=== PATIENT | female | born 2000 | race Caucasian/White ===

== ENCOUNTER 2022-12-08 15:11 | Observation (INO) ==
--- NOTE | 2022-12-08 16:02 | XRay Report ---
SINGLE VIEW CHEST CLINICAL HISTORY: Atypical chest pain. FINDINGS: An AP upright chest radiograph is obtained. No prior studies are available for comparison a t the time of dictation. The cardiomediastinal silhouette is unremarkable. The lungs and pleural spac es are clear. No pneumothorax is seen. The bony thorax is grossly intact. IMPRESSION: No active disease in the chest. ACT 112: Negative or not required by law. Electronically signed by: Carlito Caldera M.D. 12/08/2022 4:00 PM
[2022-12-08] MEDS ORDERED: ONDANSETRON INJ 2 MG/ML 2 ML VIAL IV STA (16:16)
[2022-12-08] MEDS ORDERED: SODIUM CHLORIDE 0.9% 1,000 ML IV ONE ×2 (16:22→17:12)
[2022-12-08 16:35] LABS: Basophils # (auto) 0.01 K/uL (0.00-0.20); Basophils % (auto) 0.1 %; Hematocrit (blood only) 35.9 % (37.0-47.0); Hemoglobin 13.2 g/dl (12.0-16.0); Immature Granulocytes # (auto) 0.04 K/uL (0.01-0.20); Immature Granulocytes % (auto) 0.4 %; Lymphocytes # (auto) 0.59 K/uL (1.20-3.40); Lymphocytes % (auto) 5.2 %; Mean Corpuscular Hemoglobin 30.5 pg (25.0-34.0); Mean Corpuscular Hgb Conc 36.8 g/dL (32.0-36.0); Mean Corpuscular Volume 82.9 fL (80.0-100.0); Mean Platelet Volume 11.1 fL (9.4-12.4); Monocytes # (auto) 0.74 K/uL (0.11-0.59); Monocytes % (auto) 6.6 %; Neutrophils # (auto) 9.87 K/uL (1.40-6.50); Neutrophils % (auto) 87.7 %; Platelet Count 258 K/uL (130-400); RDW Coefficient of Variation 11.9 % (11.5-14.5); RDW Standard Deviation 36.2 fL (36.4-46.3); Red Blood Count 4.33 M/uL (4.20-5.40); White Blood Count 11.25 K/ul (4.8-10.8)
[2022-12-08 16:55] LABS: Alanine Aminotransferase 14 U/L (7-52); Albumin Globulin Ratio 1.7 (0.9-2); Alkaline Phosphatase 44 U/L (34-104); Anion Gap 18 (3-11); Aspartate Aminotransferase 16 U/L (13-39); Bilirubin,Total 0.9 mg/dl (0.2-1.0); Blood Urea Nitrogen 8 mg/dl (6-23); Calcium 9.8 mg/dl (8.6-10.3); Carbon Dioxide 15 mmol/L (21-32); Chloride 103 mmol/L (98-107); Est GFR (African American) 137.4 ml/min; Est GFR (Non-African American) 118.6 ml/min; Glucose 111 mg/dl (70-99(Fasting)); Potassium 3.6 mmol/L (3.5-5.1); Sodium 136 mmol/L (136-145)
[2022-12-08 17:00] LABS: Troponin I High Sensitivity 5.6 pg/ml (0-14)
[2022-12-08 17:04] LABS: INR 1.2 (0.9-1.1); Partial Thromboplastin Ratio 0.8; Partial Thromboplastin Time 22.9 Seconds (21.0-31.0); Prothrombin Time 12.5 Seconds (9.0-12.0)
[2022-12-08] MEDS ORDERED: DROPERIDOL 5 MG/2 ML VIAL IV STA (17:12)
--- NOTE | 2022-12-08 17:37 | Emergency Department Note ---
ED Provider Note History of Present Illness Chief Complaint: Vomiting Stated Complaint: VOMITING, CHEST PAIN Time Seen by Provider: 12/08/22 16:49 Source: patient Mode of arrival: ambulatory Limitations: no limitations This patient is a 22-year-old female who presents to the emergency department for evaluation of vomiting. Patient reports a history of similar episodes of symptoms and has been told she has cannabis hyperemesis syndrome. However, she states that she has not smoked marijuana for 2 weeks. She admits to drinking some alcohol yesterday and then developed a vomiting. She was seen here overnight and felt somewhat better at discharge but has now continued vomiting. She reports abdominal pain which is similar to prior episodes of this as well. [place] from out of the area and has been seen at hospitals at home for the same symptoms. She denies any fever/chills, chance of or urinary symptoms. Home Medications Medication Instructions Recorded Confirmed Type bupropion HCl 300 mg 24 hr tablet, 300 mg PO QAM 12/08/22 12/08/22 History extended release (Wellbutrin XL) escitalopram oxalate 20 mg tablet 30 mg PO DAILY 12/08/22 12/08/22 History (Lexapro) gabapentin 100 mg capsule 200 mg PO BID 12/08/22 12/08/22 History propranolol 20 mg tablet 20 mg PO DIRECTED PRN Anxiety 12/08/22 12/08/22 History Allergies Allergy/AdvReac Type Severity Reaction Status Date / Time doxycycline AdvReac Intermediate Vomiting Verified 12/08/22 03:01 Past Med/Surg History Medical History Anxiety and depression Cannabis hyperemesis syndrome concurrent with and due to cannabis dependence Vapes nicotine containing substance Surgical History No pertinent past surgical history Social History Smoking Status: Current every day smoker Tobacco Type: E-cigarettes / Vaping Second Hand Exposure: No; Do You Dip or Chew Tobacco: No; Tobacco Cessation Education Requested by Patient: No Hx Alcohol Use: Yes Hx Substance Use: Yes Preferred Language: Kyrgyz 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 Beliefs That Will Affect Care: None Current Living Situation: Parent Feels Safe at Home: Yes Safety Concerns: Feels Safe At This Time Assistive Devices: None Physical Exam Vital Signs Vital Signs - 24 hr 12/08/22 15:22 12/08/22 17:30 12/08/22 17:31 Temperature 36.7 C Temperature Source Temporal Artery Scan Pulse Rate 104 H Pulse Rate [Right Finger] 93 H Pulse Rhythm [Right Finger] Regular Pulse Strength [Right Finger] Normal Respiratory Rate 20 24 Respiratory Effort / Characteristics Non-Labored Spontaneous Non-Labored Spontaneous Respiratory Depth Normal Normal Respiratory Pattern Regular Blood Pressure 137/70 Blood Pressure [Right Arm] 136/83 Blood Pressure Mean 92 Blood Pressure Mean [Right Arm] 100 Blood Pressure Position [Right Arm] Lying Pulse Oximetry 100 97 100 Oxygen Delivery Method Room Air Room Air Room Air Sepsis Recent Fever Within 48 Hours No Sepsis New/Unexplained Change in Mental Status N/A Sepsis Action Taken by Nursing No Action Required 12/08/22 18:21 12/08/22 18:44 12/08/22 20:00 Temperature Temperature Source Pulse Rate 74 Pulse Rate [Right Finger] 93 H 90 Pulse Rhythm [Right Finger] Regular Regular Pulse Strength [Right Finger] Normal Normal Respiratory Rate 18 19 Respiratory Effort / Characteristics Non-Labored Spontaneous Non-Labored Spontaneous Respiratory Depth Normal Normal Respiratory Pattern Regular Regular Blood Pressure Blood Pressure [Right Arm] 134/77 117/66 Blood Pressure Mean Blood Pressure Mean [Right Arm] 96 83 Blood Pressure Position [Right Arm] Lying Lying Pulse Oximetry 99 97 Oxygen Delivery Method Room Air Room Air Sepsis Recent Fever Within 48 Hours Sepsis New/Unexplained Change in Mental Status Sepsis Action Taken by Nursing VITALS: Vitals are noted on the nurse's note and reviewed by myself. GENERAL: This is a 22-year-old female, dry heaving into an emesis bag. SKIN: The skin was without rashes. EYES: Pupils equal round and reactive to light and accommodation. MOUTH: Mucous membranes moist. HEART: Regular rate and rhythm without murmurs gallops or rubs. LUNGS: Clear to auscultation bilaterally without wheezes, rales or rhonchi. ABDOMEN: Positive bowel sounds x 4. Soft, generalized tenderness to palpation. No guarding or rebound tenderness. NEURO: Patient was alert and oriented to person place and time. Course Administered Medications Dextrose/Lactated Ringer's (D5w And Lactated Ringers) 1,000 mls @ 125 mls/hr IV .Q8H PEPE Stop: 01/07/23 20:29 Last Admin: 12/08/22 22:53 Dose: 125 mls/hr Documented By: TRIAGE TECHNICIAN Magnesium Sulfate/Dextrose (Magnesium Sulfate / D5w) 1 gm in 100 mls @ 50 mls/hr IV Q2H PEPE Stop: 12/09/22 00:59 Last Admin: 12/08/22 22:52 Dose: 50 mls/hr Documented By: TRIAGE TECHNICIAN Potassium Phosphate 21 mmol/ (Sodium Chloride) 507 mls @ 88 mls/hr IV ONE ONE Stop: 12/09/22 02:45 Last Admin: 12/08/22 22:45 Dose: 88 mls/hr Documented By: TRIAGE TECHNICIAN Discontinued Medications Droperidol (Droperidol 5 Mg/2 Ml Vial) 0.625 mg IV ONE STA Stop: 12/08/22 17:13 Last Admin: 12/08/22 17:32 Dose: 0.625 mg Documented By: TRIAGE TECHNICIAN Sodium Chloride (Nss) 1,000 mls @ 999 mls/hr IV .Q1H1M ONE Stop: 12/08/22 17:22 Last Infusion: 12/08/22 17:20 Dose: 0 mls/hr Documented By: TRIAGE TECHNICIAN Admin: 12/08/22 16:26 Dose: 999 mls/hr Documented By: ARS Sodium Chloride (Nss) 1,000 mls @ 999 mls/hr IV .Q1H1M ONE Stop: 12/08/22 18:12 Last Infusion: 12/08/22 19:22 Dose: 0 mls/hr Documented By: TRIAGE TECHNICIAN Admin: 12/08/22 17:34 Dose: 999 mls/hr Documented By: OMAR Famotidine 20 mg/ Syringe 5 mls @ 2.5 mls/min IV ONE STA Stop: 12/08/22 20:42 Last Admin: 12/08/22 21:25 Dose: 2.5 mls/min Documented By: JESÚS Pantoprazole Sodium 40 mg/ (Syringe) 10 mls @ 5 mls/min IV NOW ONE Stop: 12/08/22 20:42 Last Admin: 12/08/22 21:25 Dose: 5 mls/min Documented By: JESÚS Lorazepam (Lorazepam 2 Mg/1 Ml Vial) 0.5 mg IV NOW STA Stop: 12/08/22 20:42 Last Admin: 12/08/22 21:02 Dose: 0.5 mg Documented By: JESÚS Ondansetron HCl (Ondansetron Inj 2 Mg/Ml 2 Ml Vial) 4 mg IV NOW STA Stop: 12/08/22 16:17 Last Admin: 12/08/22 16:25 Dose: 4 mg Documented By: VIN Medical Decision Making Differential Diagnosis Gastroenteritis, food borne illness, infections, appendicitis, diverticulitis, inflammatory bowel disease, obstruction, GI bleed, biliary pathology, volvulus, as well as other pathologies. Home Medications was personally reviewed by me Laboratory Data Attestation: I reviewed the patient's lab results. 12/08/22 16:22 12/08/22 16:22 Lab Results 12/08/22 12/08/22 12/08/22 Range/Units 06:21 06:21 16:22 WBC 11.25 H (4.8-10.8) K/ul RBC 4.33 (4.20-5.40) M/uL Hgb 13.2 (12.0-16.0) g/dl Hct 35.9 L (37.0-47.0) % MCV 82.9 (80.0-100.0) fL MCH 30.5 (25.0-34.0) pg MCHC 36.8 H (32.0-36.0) g/dL RDW Std Deviation 36.2 L (36.4-46.3) fL RDW Coeff of Stephanie 11.9 (11.5-14.5) % Plt Count 258 (130-400) K/uL MPV 11.1 (9.4-12.4) fL Immature Gran % (Auto) 0.4 % Neut % (Auto) 87.7 % Lymph % (Auto) 5.2 % [place] % (Auto) 6.6 % Eos % (Auto) 0.0 % Baso % (Auto) 0.1 % Neut # (Auto) 9.87 H (1.40-6.50) K/uL Lymph # (Auto) 0.59 L (1.20-3.40) K/uL [place] # (Auto) 0.74 H (0.11-0.59) K/uL Eos # (Auto) 0.00 (0.00-0.50) K/uL Baso # (Auto) 0.01 (0.00-0.20) K/uL Immature Gran # (Auto) 0.04 (0.01-0.20) K/uL PT (9.0-12.0) Seconds INR (0.9-1.1) APTT (21.0-31.0) Seconds PTT Ratio Sodium (136-145) mmol/L Potassium (3.5-5.1) mmol/L Chloride (98-107) mmol/L Carbon Dioxide (21-32) mmol/L Anion Gap (3-11) BUN (6-23) mg/dl Creatinine (0.6-1.2) mg/dl Est Cr Clr Drug Dosing Est GFR ( Amer) ml/min Est GFR (Non-Af Amer) ml/min BUN/Creatinine Ratio (10-20) Glucose (70-99(Fasting)) mg/dl Calcium (8.6-10.3) mg/dl Phosphorus (2.5-4.9) mg/dl Magnesium (1.7-2.4) mg/dl Total Bilirubin (0.2-1.0) mg/dl AST (13-39) U/L ALT (7-52) U/L Alkaline Phosphatase (34-104) U/L Troponin I High Sens (0-14) pg/ml Total Protein (6.0-8.3) gm/dl Albumin (3.4-5.0) gm/dl Globulin (2.5-4.0) gm/dl Albumin/Globulin Ratio (0.9-2) Urine Test Negative (Negative) Urine Opiates Screen Pos H (Neg) Ur Methadone, Qual Neg (Neg) Urine Barbiturates Neg (Neg) Ur Phencyclidine (PCP) Neg (Neg) U Amphetamin/Meth Scrn Neg (Neg) MDMA (Ecstasy) Screen Pos H (Neg) U Benzodiazepines Scrn Neg (Neg) Ur Cocaine Metabolite Neg (Neg) U Marijuana (THC) Screen Pos H (Neg) 12/08/22 12/08/22 Range/Units 16:22 16:22 WBC (4.8-10.8) K/ul RBC (4.20-5.40) M/uL Hgb (12.0-16.0) g/dl Hct (37.0-47.0) % MCV (80.0-100.0) fL MCH (25.0-34.0) pg MCHC (32.0-36.0) g/dL RDW Std Deviation (36.4-46.3) fL RDW Coeff of Stephanie (11.5-14.5) % Plt Count (130-400) K/uL MPV (9.4-12.4) fL Immature Gran % (Auto) % Neut % (Auto) % Lymph % (Auto) % [place] % (Auto) % Eos % (Auto) % Baso % (Auto) % Neut # (Auto) (1.40-6.50) K/uL Lymph # (Auto) (1.20-3.40) K/uL [place] # (Auto) (0.11-0.59) K/uL Eos # (Auto) (0.00-0.50) K/uL Baso # (Auto) (0.00-0.20) K/uL Immature Gran # (Auto) (0.01-0.20) K/uL PT 12.5 H (9.0-12.0) Seconds INR 1.2 H (0.9-1.1) APTT 22.9 (21.0-31.0) Seconds PTT Ratio 0.8 Sodium 136 (136-145) mmol/L Potassium 3.6 (3.5-5.1) mmol/L Chloride 103 (98-107) mmol/L Carbon Dioxide 15 L (21-32) mmol/L Anion Gap 18 H (3-11) BUN 8 (6-23) mg/dl Creatinine 0.73 (0.6-1.2) mg/dl Est Cr Clr Drug Dosing Not Reportable Est GFR ( Amer) 137.4 ml/min Est GFR (Non-Af Amer) 118.6 ml/min BUN/Creatinine Ratio 11.0 (10-20) Glucose 111 H (70-99(Fasting)) mg/dl Calcium 9.8 (8.6-10.3) mg/dl Phosphorus 1.1 L* (2.5-4.9) mg/dl Magnesium 1.4 L (1.7-2.4) mg/dl Total Bilirubin 0.9 (0.2-1.0) mg/dl AST 16 (13-39) U/L ALT 14 (7-52) U/L Alkaline Phosphatase 44 (34-104) U/L Troponin I High Sens 5.6 (0-14) pg/ml Total Protein 8.0 (6.0-8.3) gm/dl Albumin 5.0 (3.4-5.0) gm/dl Globulin 3.0 (2.5-4.0) gm/dl Albumin/Globulin Ratio 1.7 (0.9-2) Urine Test (Negative) Urine Opiates Screen (Neg) Ur Methadone, Qual (Neg) Urine Barbiturates (Neg) Ur Phencyclidine (PCP) (Neg) U Amphetamin/Meth Scrn (Neg) MDMA (Ecstasy) Screen (Neg) U Benzodiazepines Scrn (Neg) Ur Cocaine Metabolite (Neg) U Marijuana (THC) Screen (Neg) Imaging Data Attestation: I personally reviewed and interpreted this imaging study as follows: Radiologist's Impression: Chest X-Ray 12/08/22 15:25 SINGLE VIEW CHEST CLINICAL HISTORY: Atypical chest pain. FINDINGS: An AP upright chest radiograph is obtained. No prior studies are available for comparison at the time of dictation. The cardiomediastinal silhouette is unremarkable. The lungs and pleural spaces are clear. No pneumothorax is seen. The bony thorax is grossly intact. IMPRESSION: No active disease in the chest. ACT 112: Negative or not required by law. Electronically signed by: Carlito Caldera M.D. 12/08/2022 4:00 PM ECG Data Attestation: I personally reviewed and interpreted this ECG as follows: Indication: + abdominal pain Rate (beats per minute): 91 Rhythm: + normal sinus ECG Intervals/blocks: + Short ND ECG ST segments: + Normal ST segments Comparison ECG Date: no prior available MDM Narrative Continuous quality assurance monitor: Order was placed for continuous quality assurance monitor. Patient was placed on the quality assurance monitor. Patient was noted to be in sinus tachycardia at an initial rate of 105 bpm. The patient is a 22-year-old female who presents today complaining of vomiting. Labs revealed an elevated anion gap. Patient has a leukocytosis of 11,000. She was treated with IV fluids and Zofran without improvement. She was then given droperidol which did improve her nausea and vomiting somewhat, although she did have some persistent dry heaving. For this reason patient will require admission. Case was discussed with the [facility] hospitalist who agreed to evaluate the patient for further care. Impression Intractable vomiting Discharge Plan Visit Data Chief Complaint: Vomiting Stated Complaint: VOMITING, CHEST PAIN ED Provider: Chuy Cartwright ED Midlevel Provider: Lupe Hill Discharge Problem: Intractable vomiting Patient Disposition: Admitted As Inpatient Discharge Instructions Interventions: ED Discharge Assessment Last Done: 12/08/22 23:17
[2022-12-08] MEDS ORDERED: CAPSAICIN CR 0.075% 60 GM TUBE EXT STA (20:16)
--- NOTE | 2022-12-08 20:16 | History & Physical Report ---
Date of Service December 08, 2022 Assessment & Plan (1) Cyclic vomiting syndrome: Plan: Capsaicin cream (since she has never tried this previously), if no effective will prescribe PRN lorazepam given her high anxiety/agitation and this has worked in the past Ondansetron for nausea Avoid further anti-psychotics for nausea as having dyskinesia movements, although friends report this is normal for her reportedly became worse after droperidol, can also cause esophageal dysmotility, lorazepam can help with her movement disorder in addition as above Acetaminophen for pain assuming level negative in blood Patient may take hot showers Suspect due to alcohol on this occasion. Urine drug screen pending. Add Mg and PO to previous labs No urine test performed, will add to prior urine sample in lab (2) GERD (gastroesophageal reflux disease): Plan: Pantoprazole 40mg IV and famotidine 20mg IV now Will defer additional doses to oncoming providers as suspect just related to her vomiting (3) Anxiety and depression: Plan: Continue lexopro, wellbutrin, gabapentin when able to take PO Lorazepam 0.5mg IV q4h PRN for anxiety/agitation (4) Vapes nicotine containing substance: Plan: Declines nicotine patch (5) High anion gap metabolic acidosis: Plan: Suspect due to ketoacidosis with 4+ ketones in urine, bicarb and gap progressively getting worse since earlier in the day - should improve with D5LR IV drip and eventual increase in appetite Lactate, acetaminophen, salicylate, serum osm ordered for completeness Plan VTE Prophyalxis - low risk Diet - clear liquids, advance as tolerated Disposition - observation status to med/surg Admission and Anticipated Discharge Date Admission Date: December 08, 2022 History of Present Illness Chief Complaint: Vomiting, abdominal pain Primary Care Provider: NO PCP Yolanda Monreal is a 22 year old female with history of cannabis hyperemesis syndrome who presents to the ER with her typical symptoms of abdominal pain, nausea and vomiting however she has noted had cannabis for the last 2 weeks. Symptoms started yesterday after drinking alcohol at the football game. Abdominal pain 10/10 at worse, 5/10 currently, no radiation. No diarrhea. No BM for the last 2 days, feeling constipated. Did not take her medications this morning. No urinary or respiratory complaints. History of cannabis hyperemesis for the last 1.5 years with multiple ER visits. Allergies Allergy/AdvReac Type Severity Reaction Status Date / Time doxycycline AdvReac Intermediate Vomiting Verified 12/08/22 03:01 Home Medications Medication Instructions Recorded Confirmed Type bupropion HCl 300 mg 24 hr tablet, 300 mg PO QAM 12/08/22 12/08/22 History extended release (Wellbutrin XL) escitalopram oxalate 20 mg tablet 30 mg PO DAILY 12/08/22 12/08/22 History (Lexapro) gabapentin 100 mg capsule 200 mg PO BID 12/08/22 12/08/22 History propranolol 20 mg tablet 20 mg PO DIRECTED PRN Anxiety 12/08/22 12/08/22 His tory Past Med/Surg History Medical History Anxiety and depression Cannabis hyperemesis syndrome concurrent with and due to cannabis dependence Vapes nicotine containing substance Surgical History No pertinent past surgical history Social History Smoking Status: Current every day smoker Tobacco Type: E-cigarettes / Vaping Second Hand Exposure: No; Do You Dip or Chew Tobacco: No; Tobacco Cessation Education Requested by Patient: No Hx Alcohol Use: Yes Hx Substance Use: Yes Preferred Language: Slovenian 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 Beliefs That Will Affect Care: None Current Living Situation: Parent Feels Safe at Home: Yes Safety Concerns: Feels Safe At This Time Assistive Devices: None Review of Systems Review of Systems: All systems reviewed & are unremarkable except as noted in HPI & below Physical Exam Constitutional: WD/WN, vitals as above Eyes: + anicteric sclerae; normal pupil size ENMT: external ear and nose normal, oropharynx normal Neck: trachea midline, no thyromegaly Respiratory: normal respiratory effort, lungs clear to auscultation Cardiovascular: Rate/Rhythm: regular rhythm and + tachycardic Heart Sounds: no murmur Extremities: normal capillary refill; no pedal edema Gastrointestinal (Abdomen): Inspection/Auscultation: abdomen normal to inspection; abdomen not distended Percussion/Palpation: abdomen soft; abdomen nontender, no guarding and abdomen not rigid Musculoskeletal: no cyanosis or clubbing, extremities motor strength 5/5 Skin: no rashes, warm and dry Neurologic: moves all extremities and awake; not confused Psychiatric: A+Ox3, euthymic affect Genitourinary: no CVA tenderness Results & Data Results & Data Vital Signs (Past 12 Hours) Vital Signs Temp Pulse Pulse Resp BP BP Pulse Ox 12/08/22 18:44 93 H 18 134/77 99 12/08/22 18:21 74 12/08/22 17:31 93 H 24 136/83 100 12/08/22 17:30 97 12/08/22 15:22 36.7 C 104 H 20 137/70 100 O2 Del Method 12/08/22 18:44 Room Air 12/08/22 18:21 12/08/22 17:31 Room Air 12/08/22 17:30 Room Air 12/08/22 15:22 Room Air Laboratory Results Abnormal lab results 12/08/22 12/08/22 12/08/22 Range/Units 16:22 16:22 16:22 WBC 11.25 H (4.8-10.8) K/ul Hct 35.9 L (37.0-47.0) % MCHC 36.8 H (32.0-36.0) g/dL RDW Std Deviation 36.2 L (36.4-46.3) fL Neut # (Auto) 9.87 H (1.40-6.50) K/uL Lymph # (Auto) 0.59 L (1.20-3.40) K/uL [place] # (Auto) 0.74 H (0.11-0.59) K/uL PT 12.5 H (9.0-12.0) Seconds INR 1.2 H (0.9-1.1) Carbon Dioxide 15 L (21-32) mmol/L Anion Gap 18 H (3-11) Glucose 111 H (70-99(Fasting)) mg/dl Diagnostic Findings SINGLE VIEW CHEST CLINICAL HISTORY: Atypical chest pain. FINDINGS: An AP upright chest radiograph is obtained. No prior studies are av ailable for comparison at the time of dictation. The cardiomediastinal silhouette is unremarkable. The lungs and pleural spaces are clear. No pneumothorax is seen. The bony thorax is grossly intact. IMPRESSION: No active disease in the chest. Medications Administered ER Medications Given: Ondansetron 4mg IV Normal saline 1L bolus x2 Droperidol 0.625mg IV Capsaicin 1 appln EXT ECG Rate (beats per minute): 91 Rhythm: sinus with SA Findings: no acute ischemic change Comparison ECG Date: no prior available Code Status & VTE Plan Code Status Full VTE Prophylaxis Plan VTE Prophylaxis will be ordered: No PG Care Time/CCT Total # of Minutes Spent Total Time Spent with Patient: Total time spent is greater than 50% in coordination of care (as documented) at patient's floor/unit and/or counseling patient: Coding Level of Care Code 34049 INT INP/OBS CARE 2/55MIN Diagnoses Cyclic vomiting syndrome R11.15 GERD (gastroesophageal reflux disease) K21.9 Anxiety and depression F41.9; F32.A Vapes nicotine containing substance Z72.0 High anion gap metabolic acidosis E87.29
[2022-12-08] MEDS ORDERED: FAMOTIDINE 20 MG in SYRINGE 3 ML IV STA (20:41)
[2022-12-08] MEDS ORDERED: PANTOprazole 40 MG in SYRINGE 0 ML IV ONE (20:41)
[2022-12-08] MEDS ORDERED: LORazepam 2 MG/1 ML VIAL IV STA (20:41)
[2022-12-08] MEDS ORDERED: POTASSIUM PHOS 3 MMOL/1 ML INFUSION IV STA (20:50)
[2022-12-08 20:51] LABS: Magnesium 1.4 mg/dl (1.7-2.4); Phosphorus 1.1 mg/dl (2.5-4.9)
[2022-12-08] MEDS ORDERED: POTASSIUM PHOSPHATE 21 MMOL in SODIUM CHLORIDE 0.9% 500 ML IV ONE (21:00)
[2022-12-08 21:01] LABS: Pregnancy Test, Urine Negative (Negative)
[2022-12-08 21:16] LABS: Amphetamines+Metham, Urine Neg (Neg); Barbiturates, Urine Neg (Neg); Benzodiazepine, Urine Neg (Neg); Cocaine, Urine Neg (Neg); MDMA (Ecstacy), Urine Pos (Neg); Methadone, Urine Neg (Neg); Opiate, Urine Pos (Neg); Phencyclidine, Urine Neg (Neg)
[2022-12-08 21:36] LABS: Acetaminophen < 3 ug/ml (10-30); Salicylate < 3.0 mg/dl (3.0-30)
[2022-12-08 21:57] LABS: HCO3 VBG 17 mmol/L; Oxygen Saturation VBG 96.8 %; PCO2 VBG 26 mmHg (38-50); PO2 VBG 72 mmHg; pH VBG 7.42 (7.36-7.41)
[2022-12-08] MEDS: MAGNESIUM SULFATE / D5W 1 GM/100 ML BAG IV SCH (22:52)
[2022-12-08] MEDS: D5W AND LACTATED RINGERS 1,000 ML IV SCH (22:53)
[2022-12-08] MEDS ORDERED: CAPSAICIN CR 0.075% 60 GM TUBE EXT PRN (23:51)
[2022-12-08] MEDS ORDERED: LORazepam 2 MG/1 ML VIAL IV PRN (23:51)
[2022-12-08] MEDS ORDERED: ONDANSETRON INJ 2 MG/ML 2 ML VIAL IV PRN (23:51)
[2022-12-09] MEDS: MAGNESIUM SULFATE / D5W 1 GM/100 ML BAG IV SCH (00:25)
[2022-12-09] MEDS: GABAPENTIN 100 MG CAP PO SCH ×3 (00:30→23:17)
[2022-12-09] MEDS: D5W AND LACTATED RINGERS 1,000 ML IV SCH (06:24)
--- NOTE | 2022-12-09 08:21 | Hospitalist Progress Note ---
Date of Service December 09, 2022 Assessment & Plan (1) Cyclic vomiting syndrome: Plan: Capsaicin cream (since she has never tried this previously), if no effective will prescribe PRN lorazepam given her high anxiety/agitation and this has worked in the past Ondansetron for nausea Avoid further anti-psychotics for nausea as having dyskinesia movements, although friends report this is normal for her reportedly became worse after droperidol, can also cause esophageal dysmotility, lorazepam can help with her movement disorder in addition as above Acetaminophen for pain assuming level negative in blood Patient may take hot showers Suspect due to alcohol on this occasion. Urine drug screen pending. Add Mg and PO to previous labs No urine test performed, will add to prior urine sample in lab - negative 12/09 Had been drinking on her psych meds, issues w/ droperidol in ER w/ dysmotility, hx recently diagnosed cyclic vomiting syndrome but had reported no smoking x 2 weeks. UDS w/ +opiates, marijuana, MDMA (?from her wellbutrin) --?opiate use disorder --> will need further inquiring but did not want to participate much during examination --> Emesis x 1 this morning Ativan IV provided this morning, extremely drowsy during encounter this morning, wanting to rest. SUspect component of anxiety also effecting patient. Reported severe abdominal pain Decreased to 0.5mg IV ativan as needed Reglan 10mg Q6H IV, changed to prn -- declined need for dose Psych consulted as well, appreciate assistance Clear liquid diet --> advance as tolerated Labs improved, no significant dehydration on exam, discontinued further IVF at present CTAP obtained to ensure no other issue given electrolyte derangement on admission * 1. No definite bowel wall thickening or obstruction. * 2. Normal appendix. * 3. Periportal/pericholecystic edema with mild mesenteric edema and trace pelvic fluid. This favors overhydration. Recommend correlation with LFTs. * 4. A 5.8 cm cystic lesion within the right adnexa consistent with a right ovarian dermoid as described above. Follow-up gynecologic consultation recommended. SMART GRID ENGINEER consulted, planning for pelvic/vaginal US, appreciate recs in consultation Patient reporting would like to try advancement of her diet --> full liquid for dinner, monitor/adv as able (2) GERD (gastroesophageal reflux disease): Plan: Pantoprazole 40mg IV and famotidine 20mg IV x 1 on admission Will schedule pepcid q12 for now, improvement in reflux and wanting to advance to full liquid tonight monitor advancement as tolerated can consider scheduling daily protonix if isssues w/ alcohol use/gastritis. CTAP w/o acute gastritis findings Antiemetics prn (3) Anxiety and depression: Plan: Continue lexopro, wellbutrin, gabapentin as able to take PO Lorazepam decreased from 1mg to 0.5mg anxiety/agitation/nausea Psych consulted as above, appreciate assistance (4) Vapes nicotine containing substance: Plan: Declines nicotine patch (5) High anion gap metabolic acidosis: Plan: Suspect due to ketoacidosis with 4+ ketones in urine, bicarb and gap progressively getting worse since earlier in the day - should improve with D5LR IV drip and eventual increase in appetite Lactic wnl, tylenol <3, salicylate <3 Serum osm 284 Discontinued further IVF. ?starvation ketosis vs alcoholic ketosis from drinking this past weekend? Labs improved on repeat and will monitor off further VIF (6) Hypomagnesemia: Plan: 1.4 on admission, replacement ordered Mag 2.1 on repeat labs and will monitor to ensure staying stable (7) Hypophosphatemia: Plan: 1.1 on admission, replacement ordered normalized to 3.3 on AM labs and will monitor Plan diet advanced for supper SMART GRID ENGINEER consulted, pelvic/vaginal US/recs appreciate reglan available prn, check EKG for QTC. psych consulted, appreciate assistance Admission and Anticipated Discharge Date Admission Date: December 08, 2022 Supervising Physician Co-Signing Physician Notes The patient was not seen by me. The chart was reviewed. Case discussed with VON Larose. Agree with assessment and plan. Subjective Eval around lunch, very sleepy. Wanting to rest. Reporting pain to her upper abdomen. Imaging with overhydration. Stopped. Had some emesis this morning. Discussed CTAP w/ large dermoid cyst, she reports being aware of this finding. Consultation pending for SMART GRID ENGINEER. DId not want to participating in much of an exam at present. Very sedated. Will add flumazenil prn if needed, will decrease dose of prn ativan to prevent over sedation. Later in afternoon, more alert/talkative with psych with friends in the room and did not want the reglan and reported feeling a little better. Changed to prn. To advance diet as tolerated. Review of Systems Review of Systems: All systems reviewed & are unremarkable except as noted in HPI & below Physical Exam Physical Exam: General: 22yo female sleeping upon entry, drowsy/fatigued appearing, complaints of upper abdominal discomfort HEENT: head normocephalic, atraumatic, mmm, trachea midline Resp: CTA, no w/c/r, 100% on RA CV: regular rate/rhythm, slightly tachy to 90s-low 100s, no significant m/r/g, no pitting edema GI: +BS, soft, tenderness reported upper abdomen, no rigidity/guarding/warmth : no bills MSk/Neuro: would not participate with exam, too drowsy at present. Psych: alert/oriented but drowsy Results & Data Results & Data Vital Signs (Past 12 Hours) Vital Signs Temp Pulse Pulse Resp BP BP Pulse Ox 12/09/22 07:33 36.9 C 77 14 108/75 100 12/08/22 23:17 103 H 14 114/74 99 12/08/22 22:00 79 22 115/64 98 12/08/22 22:06 94 H O2 Del Method 12/09/22 07:33 Room Air 12/08/22 23:17 Room Air 12/08/22 22:00 Room Air 12/08/22 22:06 Laboratory Results 12/09/22 12/09/22 12/08/22 Range/Units 07:35 07:35 21:40 WBC 8.80 (4.8-10.8) K/ul RBC 3.48 L (4.20-5.40) M/uL Hgb 10.3 L D (12.0-16.0) g/dl Hct 29.4 L (37.0-47.0) % MCV 84.5 (80.0-100.0) fL MCH 29.6 (25.0-34.0) pg MCHC 35.0 (32.0-36.0) g/dL RDW Std Deviation 38.7 (36.4-46.3) fL RDW Coeff of Stephanie 12.6 (11.5-14.5) % Plt Count 174 (130-400) K/uL MPV 11.3 (9.4-12.4) fL Immature Gran % (Auto) 1.4 % Neut % (Auto) 61.7 % Lymph % (Auto) 21.3 % Grainger % (Auto) 15.3 % Eos % (Auto) 0.2 % Baso % (Auto) 0.1 % Neut # (Auto) 5.43 (1.40-6.50) K/uL Lymph # (Auto) 1.87 (1.20-3.40) K/uL Grainger # (Auto) 1.35 H (0.11-0.59) K/uL Eos # (Auto) 0.02 (0.00-0.50) K/uL Baso # (Auto) 0.01 (0.00-0.20) K/uL Immature Gran # (Auto) 0.12 (0.01-0.20) K/uL PT (9.0-12.0) Seconds INR (0.9-1.1) APTT (21.0-31.0) Seconds PTT Ratio VBG pH 7.42 H (7.36-7.41) VBG pCO2 26 L (38-50) mmHg VBG pO2 72 mmHg VBG HCO3 17 mmol/L VBG O2 Saturation 96.8 % VBG Base Excess -6.0 mEq/L Sodium 139 (136-145) mmol/L Potassium 3.4 L (3.5-5.1) mmol/L Chloride 112 H (98-107) mmol/L Carbon Dioxide 23 (21-32) mmol/L Anion Gap 4 (3-11) BUN 3 L (6-23) mg/dl Creatinine 0.54 L (0.6-1.2) mg/dl Est Cr Clr Drug Dosing 131.4 Est GFR ( Amer) > 150.0 ml/min Est GFR (Non-Af Amer) 135.8 ml/min BUN/Creatinine Ratio 5.6 L (10-20) Glucose 111 H (70-99(Fasting)) mg/dl Osmolality (280-300) mOsm/kg Lactate (0.4-2.0) mmol/L Calcium 8.0 L (8.6-10.3) mg/dl Phosphorus 3.3 D (2.5-4.9) mg/dl Magnesium 2.1 (1.7-2.4) mg/dl Total Bilirubin 0.5 (0.2-1.0) mg/dl AST 11 L (13-39) U/L ALT 9 (7-52) U/L Alkaline Phosphatase 30 L (34-104) U/L Troponin I High Sens (0-14) pg/ml Total Protein 5.6 L D (6.0-8.3) gm/dl Albumin 3.6 (3.4-5.0) gm/dl Globulin 2.0 L (2.5-4.0) gm/dl Albumin/Globulin Ratio 1.8 (0.9-2) Urine Test (Negative) Salicylates (3.0-30) mg/dl Urine Opiates Screen (Neg) U Codeine Confrm GC/MS Ur Morphine (GC/MS) Ur Hydrocodone (GC/MS) Ur Norhydrocodone Ur Noroxycodone Urine Oxycodone (GC/MS) U Oxymorphone GC/MS Ur Methadone, Qual (Neg) Ur Hydromorphone (GC/MS) Acetaminophen (10-30) ug/ml Urine Barbiturates (Neg) Ur Phencyclidine (PCP) (Neg) U Amphetamin/Meth Scrn (Neg) Urine MDEA MDMA (Ecstasy) Screen (Neg) MDMA Urine MDMA U Benzodiazepines Scrn (Neg) Ur Cocaine Metabolite (Neg) U Marijuana (THC) Screen (Neg) U Marijuana THC Carboxy Drug Screen Comment Ethyl Alcohol mg/dL (<10.0) mg/dl 12/08/22 12/08/22 12/08/22 Range/Units 21:06 21:06 21:06 WBC (4.8-10.8) K/ul RBC (4.20-5.40) M/uL Hgb (12.0-16.0) g/dl Hct (37.0-47.0) % MCV (80.0-100.0) fL MCH (25.0-34.0) pg MCHC (32.0-36.0) g/dL RDW Std Deviation (36.4-46.3) fL RDW Coeff of Stephanie (11.5-14.5) % Plt Count (130-400) K/uL MPV (9.4-12.4) fL Immature Gran % (Auto) % Neut % (Auto) % Lymph % (Auto) % Grainger % (Auto) % Eos % (Auto) % Baso % (Auto) % Neut # (Auto) (1.40-6.50) K/uL Lymph # (Auto) (1.20-3.40) K/uL Grainger # (Auto) (0.11-0.59) K/uL Eos # (Auto) (0.00-0.50) K/uL Baso # (Auto) (0.00-0.20) K/uL Immature Gran # (Auto) (0.01-0.20) K/uL PT (9.0-12.0) Seconds INR (0.9-1.1) APTT (21.0-31.0) Seconds PTT Ratio VBG pH (7.36-7.41) VBG pCO2 (38-50) mmHg VBG pO2 mmHg VBG HCO3 mmol/L VBG O2 Saturation % VBG Base Excess mEq/L Sodium (136-145) mmol/L Potassium (3.5-5.1) mmol/L Chloride (98-107) mmol/L Carbon Dioxide (21-32) mmol/L Anion Gap (3-11) BUN (6-23) mg/dl Creatinine (0.6-1.2) mg/dl Est Cr Clr Drug Dosing Est GFR ( Amer) ml/min Est GFR (Non-Af Amer) ml/min BUN/Creatinine Ratio (10-20) Glucose (70-99(Fasting)) mg/dl Osmolality 284 (280-300) mOsm/kg Lactate (0.4-2.0) mmol/L Calcium (8.6-10.3) mg/dl Phosphorus (2.5-4.9) mg/dl Magnesium (1.7-2.4) mg/dl Total Bilirubin (0.2-1.0) mg/dl AST (13-39) U/L ALT (7-52) U/L Alkaline Phosphatase (34-104) U/L Troponin I High Sens (0-14) pg/ml Total Protein (6.0-8.3) gm/dl Albumin (3.4-5.0) gm/dl Globulin (2.5-4.0) gm/dl Albumin/Globulin Ratio (0.9-2) Urine Test (Negative) Salicylates < 3.0 L (3.0-30) mg/dl Urine Opiates Screen (Neg) U Codeine Confrm GC/MS Ur Morphine (GC/MS) Ur Hydrocodone (GC/MS) Ur Norhydrocodone Ur Noroxycodone Urine Oxycodone (GC/MS) U Oxymorphone GC/MS Ur Methadone, Qual (Neg) Ur Hydromorphone (GC/MS) Acetaminophen < 3 L (10-30) ug/ml Urine Barbiturates (Neg) Ur Phencyclidine (PCP) (Neg) U Amphetamin/Meth Scrn (Neg) Urine MDEA MDMA (Ecstasy) Screen (Neg) MDMA Urine MDMA U Benzodiazepines Scrn (Neg) Ur Cocaine Metabolite (Neg) U Marijuana (THC) Screen (Neg) U Marijuana THC Carboxy Drug Screen Comment Ethyl Alcohol mg/dL < 10.0 (<10.0) mg/dl 12/08/22 12/08/22 12/08/22 Range/Units 21:06 16:22 16:22 WBC (4.8-10.8) K/ul RBC (4.20-5.40) M/uL Hgb (12.0-16.0) g/dl Hct (37.0-47.0) % MCV (80.0-100.0) fL MCH (25.0-34.0) pg MCHC (32.0-36.0) g/dL RDW Std Deviation (36.4-46.3) fL RDW Coeff of Stephanie (11.5-14.5) % Plt Count (130-400) K/uL MPV (9.4-12.4) fL Immature Gran % (Auto) % Neut % (Auto) % Lymph % (Auto) % Grainger % (Auto) % Eos % (Auto) % Baso % (Auto) % Neut # (Auto) (1.40-6.50) K/uL Lymph # (Auto) (1.20-3.40) K/uL Grainger # (Auto) (0.11-0.59) K/uL Eos # (Auto) (0.00-0.50) K/uL Baso # (Auto) (0.00-0.20) K/uL Immature Gran # (Auto) (0.01-0.20) K/uL PT 12.5 H (9.0-12.0) Seconds INR 1.2 H (0.9-1.1) APTT 22.9 (21.0-31.0) Seconds PTT Ratio 0.8 VBG pH (7.36-7.41) VBG pCO2 (38-50) mmHg VBG pO2 mmHg VBG HCO3 mmol/L VBG O2 Saturation % VBG Base Excess mEq/L Sodium 136 (136-145) mmol/L Potassium 3.6 (3.5-5.1) mmol/L Chloride 103 (98-107) mmol/L Carbon Dioxide 15 L (21-32) mmol/L Anion Gap 18 H (3-11) BUN 8 (6-23) mg/dl Creatinine 0.73 (0.6-1.2) mg/dl Est Cr Clr Drug Dosing Not Reportable Est GFR ( Amer) 137.4 ml/min Est GFR (Non-Af Amer) 118.6 ml/min BUN/Creatinine Ratio 11.0 (10-20) Glucose 111 H (70-99(Fasting)) mg/dl Osmolality (280-300) mOsm/kg Lactate 1.4 (0.4-2.0) mmol/L Calcium 9.8 (8.6-10.3) mg/dl Phosphorus 1.1 L* (2.5-4.9) mg/dl Magnesium 1.4 L (1.7-2.4) mg/dl Total Bilirubin 0.9 (0.2-1.0) mg/dl AST 16 (13-39) U/L ALT 14 (7-52) U/L Alkaline Phosphatase 44 (34-104) U/L Troponin I High Sens 5.6 (0-14) pg/ml Total Protein 8.0 (6.0-8.3) gm/dl Albumin 5.0 (3.4-5.0) gm/dl Globulin 3.0 (2.5-4.0) gm/dl Albumin/Globulin Ratio 1.7 (0.9-2) Urine Test (Negative) Salicylates (3.0-30) mg/dl Urine Opiates Screen (Neg) U Codeine Confrm GC/MS Ur Morphine (GC/MS) Ur Hydrocodone (GC/MS) Ur Norhydrocodone Ur Noroxycodone Urine Oxycodone (GC/MS) U Oxymorphone GC/MS Ur Methadone, Qual (Neg) Ur Hydromorphone (GC/MS) Acetaminophen (10-30) ug/ml Urine Barbiturates (Neg) Ur Phencyclidine (PCP) (Neg) U Amphetamin/Meth Scrn (Neg) Urine MDEA MDMA (Ecstasy) Screen (Neg) MDMA Urine MDMA U Benzodiazepines Scrn (Neg) Ur Cocaine Metabolite (Neg) U Marijuana (THC) Screen (Neg) U Marijuana THC Carboxy Drug Screen Comment Ethyl Alcohol mg/dL (<10.0) mg/dl 12/08/22 12/08/22 12/08/22 Range/Units 16:22 06:21 06:21 WBC 11.25 H (4.8-10.8) K/ul RBC 4.33 (4.20-5.40) M/uL Hgb 13.2 (12.0-16.0) g/dl Hct 35.9 L (37.0-47.0) % MCV 82.9 (80.0-100.0) fL MCH 30.5 (25.0-34.0) pg MCHC 36.8 H (32.0-36.0) g/dL RDW Std Deviation 36.2 L (36.4-46.3) fL RDW Coeff of Stephaine 11.9 (11.5-14.5) % Plt Count 258 (130-400) K/uL MPV 11.1 (9.4-12.4) fL Immature Gran % (Auto) 0.4 % Neut % (Auto) 87.7 % Lymph % (Auto) 5.2 % Grainger % (Auto) 6.6 % Eos % (Auto) 0.0 % Baso % (Auto) 0.1 % Neut # (Auto) 9.87 H (1.40-6.50) K/uL Lymph # (Auto) 0.59 L (1.20-3.40) K/uL Grainger # (Auto) 0.74 H (0.11-0.59) K/uL Eos # (Auto) 0.00 (0.00-0.50) K/uL Baso # (Auto) 0.01 (0.00-0.20) K/uL Immature Gran # (Auto) 0.04 (0.01-0.20) K/uL PT (9.0-12.0) Seconds INR (0.9-1.1) APTT (21.0-31.0) Seconds PTT Ratio VBG pH (7.36-7.41) VBG pCO2 (38-50) mmHg VBG pO2 mmHg VBG HCO3 mmol/L VBG O2 Saturation % VBG Base Excess mEq/L Sodium (136-145) mmol/L Potassium (3.5-5.1) mmol/L Chloride (98-107) mmol/L Carbon Dioxide (21-32) mmol/L Anion Gap (3-11) BUN (6-23) mg/dl Creatinine (0.6-1.2) mg/dl Est Cr Clr Drug Dosing Est GFR ( Amer) ml/min Est GFR (Non-Af Amer) ml/min BUN/Creatinine Ratio (10-20) Glucose (70-99(Fasting)) mg/dl Osmolality (280-300) mOsm/kg Lactate (0.4-2.0) mmol/L Calcium (8.6-10.3) mg/dl Phosphorus (2.5-4.9) mg/dl Magnesium (1.7-2.4) mg/dl Total Bilirubin (0.2-1.0) mg/dl AST (13-39) U/L ALT (7-52) U/L Alkaline Phosphatase (34-104) U/L Troponin I High Sens (0-14) pg/ml Total Protein (6.0-8.3) gm/dl Albumin (3.4-5.0) gm/dl Globulin (2.5-4.0) gm/dl Albumin/Globulin Ratio (0.9-2) Urine Test Negative (Negative) Salicylates (3.0-30) mg/dl Urine Opiates Screen (Neg) U Codeine Confrm GC/MS Pending Ur Morphine (GC/MS) Pending Ur Hydrocodone (GC/MS) Pending Ur Norhydrocodone Pending Ur Noroxycodone Pending Urine Oxycodone (GC/MS) Pending U Oxymorphone GC/MS Pending Ur Methadone, Qual (Neg) Ur Hydromorphone (GC/MS) Pending Acetaminophen (10-30) ug/ml Urine Barbiturates (Neg) Ur Phencyclidine (PCP) (Neg) U Amphetamin/Meth Scrn (Neg) Urine MDEA Pending MDMA (Ecstasy) Screen (Neg) MDMA Pending Urine MDMA Pending U Benzodiazepines Scrn (Neg) Ur Cocaine Metabolite (Neg) U Marijuana (THC) Screen (Neg) U Marijuana THC Carboxy Pending Drug Screen Comment Pending Ethyl Alcohol mg/dL (<10.0) mg/dl 12/08/22 Range/Units 06:21 WBC (4.8-10.8) K/ul RBC (4.20-5.40) M/uL Hgb (12.0-16.0) g/dl Hct (37.0-47.0) % MCV (80.0-100.0) fL MCH (25.0-34.0) pg MCHC (32.0-36.0) g/dL RDW Std Deviation (36.4-46.3) fL RDW Coeff of Stephanie (11.5-14.5) % Plt Count (130-400) K/uL MPV (9.4-12.4) fL Immature Gran % (Auto) % Neut % (Auto) % Lymph % (Auto) % Grainger % (Auto) % Eos % (Auto) % Baso % (Auto) % Neut # (Auto) (1.40-6.50) K/uL Lymph # (Auto) (1.20-3.40) K/uL Grainger # (Auto) (0.11-0.59) K/uL Eos # (Auto) (0.00-0.50) K/uL Baso # (Auto) (0.00-0.20) K/uL Immature Gran # (Auto) (0.01-0.20) K/uL PT (9.0-12.0) Seconds INR (0.9-1.1) APTT (21.0-31.0) Seconds PTT Ratio VBG pH (7.36-7.41) VBG pCO2 (38-50) mmHg VBG pO2 mmHg VBG HCO3 mmol/L VBG O2 Saturation % VBG Base Excess mEq/L Sodium (136-145) mmol/L Potassium (3.5-5.1) mmol/L Chloride (98-107) mmol/L Carbon Dioxide (21-32) mmol/L Anion Gap (3-11) BUN (6-23) mg/dl Creatinine (0.6-1.2) mg/dl Est Cr Clr Drug Dosing Est GFR ( Amer) ml/min Est GFR (Non-Af Amer) ml/min BUN/Creatinine Ratio (10-20) Glucose (70-99(Fasting)) mg/dl Osmolality (280-300) mOsm/kg Lactate (0.4-2.0) mmol/L Calcium (8.6-10.3) mg/dl Phosphorus (2.5-4.9) mg/dl Magnesium (1.7-2.4) mg/dl Total Bilirubin (0.2-1.0) mg/dl AST (13-39) U/L ALT (7-52) U/L Alkaline Phosphatase (34-104) U/L Troponin I High Sens (0-14) pg/ml Total Protein (6.0-8.3) gm/dl Albumin (3.4-5.0) gm/dl Globulin (2.5-4.0) gm/dl Albumin/Globulin Ratio (0.9-2) Urine Test (Negative) Salicylates (3.0-30) mg/dl Urine Opiates Screen Pos H (Neg) U Codeine Confrm GC/MS Ur Morphine (GC/MS) Ur Hydrocodone (GC/MS) Ur Norhydrocodone Ur Noroxycodone Urine Oxycodone (GC/MS) U Oxymorphone GC/MS Ur Methadone, Qual Neg (Neg) Ur Hydromorphone (GC/MS) Acetaminophen (10-30) ug/ml Urine Barbiturates Neg (Neg) Ur Phencyclidine (PCP) Neg (Neg) U Amphetamin/Meth Scrn Neg (Neg) Urine MDEA MDMA (Ecstasy) Screen Pos H (Neg) MDMA Urine MDMA U Benzodiazepines Scrn Neg (Neg) Ur Cocaine Metabolite Neg (Neg) U Marijuana (THC) Screen Pos H (Neg) U Marijuana THC Carboxy Drug Screen Comment Ethyl Alcohol mg/dL (<10.0) mg/dl Diagnostic Findings Abdomen/Pelvis CT 12/09/22 09:[address] WITH IV CONTRAST CT DOSE: 456.44 mGy.cm HISTORY: Generalized abdominal pain, nausea, vomiting TECHNIQUE: Multiaxial CT images of the abdomen and pelvis were performed following the use of intravenous contrast. A dose lowering technique was utilized adhering to the principles of ALARA. COMPARISON STUDY: None. FINDINGS: The lung bases are clear. No pneumoperitoneum. No pneumatosis. No acute fractures identified. There is periportal/pericholecystic edema noted. This could be due to overhydration. Hepatic and portal veins appear patent. No hepatic or splenic masses. The adrenal glands, pancreas, and kidneys are unremarkable. No hydronephrosis. Normal caliber abdominal aorta. No retroperitoneal or pelvic lymphadenopathy. Trace pelvic free fluid is noted. The bladder is unremarkable. Suggestion of an arcuate uterus. Normal left ovary. There is a 5.8 cm cystic lesion within the right ovary/adnexa which contains a small calcification within adjacent punctate focus of fat best seen on image 270. Therefore, this is consistent with a right ovarian dermoid. Majority colon is decompressed resulting in suboptimal evaluation. However, there is no defin ite bowel wall thickening or obstruction. Normal appendix. Mild mesenteric edema. This could also be due to overhydration. The major mesenteric vessels appear patent. IMPRESSION: 1. No definite bowel wall thickening or obstruction. 2. Normal appendix. 3. Periportal/pericholecystic edema with mild mesenteric edema and trace pelvic fluid. This favors overhydration. Recommend correlation with LFTs. 4. A 5.8 cm cystic lesion within the right adnexa consistent with a right ovarian dermoid as described above. Follow-up gynecologic consultation recommended. ACT 112: Positive. There are findings on this exam that require communication between the performing entity and the patient following Patient Test Result Information Act ([place] Act 112) guidelines. Electronically signed by: José Miguel Shirley M.D. 12/09/2022 12:07 PM PG Care Time/CCT Total # of Minutes Spent Total Time Spent with Patient: Total time spent is greater than 50% in coordination of care (as documented) at patient's floor/unit and/or counseling patient: Coding Level of Care Code 27278 SUB INP/OBS CARE 3/50MIN Diagnoses Cyclic vomiting syndrome R11.15 GERD (gastroesophageal reflux disease) K21.9 Anxiety and depression F41.9; F32.A Vapes nicotine containing substance Z72.0 High anion gap metabolic acidosis E87.29 Hypomagnesemia E83.42 Hypophosphatemia E83.39
[2022-12-09 08:50] LABS: Basophils # (auto) 0.01 K/uL (0.00-0.20); Basophils % (auto) 0.1 %; Eosinophils # (auto) 0.02 K/uL (0.00-0.50); Eosinophils % (auto) 0.2 %; Hematocrit (blood only) 29.4 % (37.0-47.0); Hemoglobin 10.3 g/dl (12.0-16.0); Immature Granulocytes # (auto) 0.12 K/uL (0.01-0.20); Immature Granulocytes % (auto) 1.4 %; Lymphocytes # (auto) 1.87 K/uL (1.20-3.40); Lymphocytes % (auto) 21.3 %; Mean Corpuscular Hemoglobin 29.6 pg (25.0-34.0); Mean Corpuscular Volume 84.5 fL (80.0-100.0); Mean Platelet Volume 11.3 fL (9.4-12.4); Monocytes # (auto) 1.35 K/uL (0.11-0.59); Monocytes % (auto) 15.3 %; Neutrophils # (auto) 5.43 K/uL (1.40-6.50); Neutrophils % (auto) 61.7 %; Platelet Count 174 K/uL (130-400); RDW Coefficient of Variation 12.6 % (11.5-14.5); RDW Standard Deviation 38.7 fL (36.4-46.3); Red Blood Count 3.48 M/uL (4.20-5.40)
[2022-12-09] MEDS ORDERED: buPROPion XL 300 MG TABCR PO SCH (09:00)
[2022-12-09] MEDS ORDERED: ESCITALOPRAM OXALATE 10 MG TAB PO SCH (09:00)
[2022-12-09] MEDS ORDERED: ACETAMINOPHEN 1,000 MG/100 ML VIAL IV STA (09:17)
[2022-12-09 09:46] LABS: Alanine Aminotransferase 9 U/L (7-52); Albumin Globulin Ratio 1.8 (0.9-2); Albumin Level 3.6 gm/dl (3.4-5.0); Alkaline Phosphatase 30 U/L (34-104); Anion Gap 4 (3-11); Aspartate Aminotransferase 11 U/L (13-39); BUN Creatinine Ratio 5.6 (10-20); Bilirubin,Total 0.5 mg/dl (0.2-1.0); Blood Urea Nitrogen 3 mg/dl (6-23); Carbon Dioxide 23 mmol/L (21-32); Chloride 112 mmol/L (98-107); Creatinine Clr Calc Pharmacy 131.4 ml/min; Est GFR (African American) > 150.0 ml/min; Est GFR (Non-African American) 135.8 ml/min; Glucose 111 mg/dl (70-99(Fasting)); Magnesium 2.1 mg/dl (1.7-2.4); Phosphorus 3.3 mg/dl (2.5-4.9); Potassium 3.4 mmol/L (3.5-5.1); Sodium 139 mmol/L (136-145); Total Protein 5.6 gm/dl (6.0-8.3)
[2022-12-09] MEDS ORDERED: OPTIRAY 320 100ml IV ONE (11:25)
[2022-12-09] MEDS ORDERED: POTASSIUM CHLORIDE 20 MEQ/15 ML UDC PO STA (11:25)
--- NOTE | 2022-12-09 11:54 | Electrocardiogram Report ---
Test Reason : Blood Pressure : / mmHG Vent. Rate : 091 BPM Atrial Rate : 091 BPM P-R Int : 084 ms QRS Dur : 074 ms QT Int : 392 ms P-R-T Axes : 093 084 020 degrees QTc Int : 482 ms Poor data quality, interpretation may be adversely affected Sinus rhythm with sinus arrhythmia with short SC Otherwise normal ECG No previous ECGs available Confirmed by Kevin Arias ([id number]) on 12/09/2022 11:53:50 AM Referred By: REFERRED SELF Confirmed By:Kevin Arias
--- NOTE | 2022-12-09 12:09 | CT Scan Report ---
ABDOMEN AND PELVIS CT WITH IV CONTRAST CT DOSE: 456.44 mGy.cm HISTORY: Generalized abdominal pain, nausea, vomiting TECHNIQUE: Multiaxial CT images of the abdomen and pelvis were performed following the use of intrave nous contrast. A dose lowering technique was utilized adhering to the principles of ALARA. COMPARISON STUDY: None. FINDINGS: The lung bases are clear. No pneumoperitoneum. No pneumatosis. No acute fractures identifie d. There is periportal/pericholecystic edema noted. This could be due to overhydration. Hepatic and p ortal veins appear patent. No hepatic or splenic masses. The adrenal glands, pancreas, and kidneys ar e unremarkable. No hydronephrosis. Normal caliber abdominal aorta. No retroperitoneal or pelvic lymph adenopathy. Trace pelvic free fluid is noted. The bladder is unremarkable. Suggestion of an arcuate u terus. Normal left ovary. There is a 5.8 cm cystic lesion within the right ovary/adnexa which contain s a small calcification within adjacent punctate focus of fat best seen on image 270. Therefore, this is consistent with a right ovarian dermoid. Majority colon is decompressed resulting in suboptimal e valuation. However, there is no definite bowel wall thickening or obstruction. Normal appendix. Mild mesenteric edema. This could also be due to overhydration. The major mesenteric vessels appear patent . IMPRESSION: 1. No definite bowel wall thickening or obstruction. 2. Normal appendix. 3. Periportal/pericholecystic edema with mild mesenteric edema and trace pelvic fluid. This favors ov erhydration. Recommend correlation with LFTs. 4. A 5.8 cm cystic lesion within the right adnexa consistent with a right ovarian dermoid as describe d above. Follow-up gynecologic consultation recommended. ACT 112: Positive. There are findings on this exam that require communication between the performing entity and the patient following Patient Test Result Information Act ([place] Act 112) guidelines. Electronically signed by: José Miguel Shirley M.D. 12/09/2022 12:07 PM
[2022-12-09] MEDS ORDERED: MoRPHine SULFATE 2 MG/ML CARP IV PRN (12:23)
[2022-12-09] MEDS ORDERED: LORazepam 2 MG/1 ML VIAL IV PRN (12:27)
[2022-12-09] MEDS ORDERED: FLUMAZENIL 0.1 MG/1 ML 10 ML VIAL IV PRN (12:28)
[2022-12-09] MEDS ORDERED: METOCLOPRAMIDE HCL INJ 5 MG/ML 2 ML VIAL IV SCH (13:15)
--- NOTE | 2022-12-09 15:10 | Psychiatric Consultation ---
Date of Consultation December 09, 2022 Impression / Recommendations Impression 22 yo female with recent d/c of cannabis due to hyperemesis syndrome having similar reaction following ingestion of alcohol in combination with her psychiatric medications. She denies tics at baseline and I agree she is likely having some transient dyskinesias following droperidol. Certainly Wellbutrin can contribute to tics, mild serotonin syndromes can contribute, and I've seen EPS with phernergan, reglan etc. Discussed with patient that she is on high dose of Lexapro, she denies feeling sx of serotonin syndrome at baseline. Reviewed risks of QTc prolongation with medications, EKG QTc >480. (1) Anxiety and depression: (2) Cyclic vomiting syndrome: Plan patient has not yet tried capsaicin for abdominal pain, currently feeling better monitor dyskinesias, she does not want to decrease any of her psychiatric medications but willing to sign MARY KATE for psychiatrist and mother so that liaison can confirm aftercare/rec for therapist, etc. patient states she doesn't like Zofran and would avoid this and other agents that can prolong the QTc. reviewed that neurontin may be adjusted as outpatient (more desirable than rx of Ativan which is controlled) but only if not combining with ETOH, will be at discretion of outpatient psychiatrist as she is currently out of state and returning home momentarily as not a student here. Overall, I spent a total of 36 minutes with this case, including review of chart records, direct evaluation of the patient bedside, counseling the patient, and documentation in the electronic health record. Psych History Identifying Data 22 yo female from [facility] here visiting friends for football week, presented to ED twice with hyperemesis. consult is by hospitalist service for medication assessment. Chief Complaint hx of cannabis hyperemesis syndrome History of Present Illness Patient reports at least 4 year hx of psychiatric care in [place] for anxiety and some depression. Had been using MJ heavily until 2 weeks ago when stopped due to cyclic vomiting. presented to ED because began to feel sick after a "sip of white claw" then developed some panic like symptoms with likely hyperventilation and carpopedal spasm. On initial presentation to the ED was given droperidol and apparently experienced some dyskinesia of left shoulder/upper extremity, began vomiting again after left ED and returned/was admitted. Patient was tired this am following dose of Ativan but is now alert and interactive with friends at bedside who confirm her accounts of sympmtoms/past psych hx. Although she struggles with feeling anxious, she denies recent medication changes and is adamant no SIB/SI. She lives with her parents who are supportive. Allergies Allergy/AdvReac Type Severity Reaction Status Date / Time doxycycline AdvReac Intermediate Vomiting Verified 12/08/22 03:01 Home Medications Medication Instructions Recorded Confirmed Type bupropion HCl 300 mg 24 hr tablet, 300 mg PO QAM 12/08/22 12/08/22 History extended release (Wellbutrin XL) escitalopram oxalate 20 mg tablet 30 mg PO DAILY 12/08/22 12/08/22 History (Lexapro) gabapentin 100 mg capsule 200 mg PO BID 12/08/22 12/08/22 History propranolol 20 mg tablet 20 mg PO DIRECTED PRN Anxiety 12/08/22 12/08/22 History Patient History Medical History Anxiety and depression Cannabis hyperemesis syndrome concurrent with and due to cannabis dependence Vapes nicotine containing substance Surgical History No pertinent past surgical history Social History Smoking Status: Current every day smoker Tobacco Type: E-cigarettes / Vaping Second Hand Exposure: No; Do You Dip or Chew Tobacco: No; Tobacco Cessation Education Requested by Patient: No Hx Alcohol Use: Yes Hx Substance Use: Yes Preferred Language: Maltese Agronomy Advisor Required: No Beliefs That Will Affect Care: None Current Living Situation: Parent Feels Safe at Home: Yes Safety Concerns: Feels Safe At This Time Assistive Devices: None Physical Exam Psychiatric: Orientation: alert and cooperative Apperance: appropriately groomed Eye Contact: good eye contact Motor Behavior: + abnormal motor movements (tic like movement of left shoulder with rock forward) Speech: normal rate/rhythm/volume of speech Affect: euthymic affect Mood: no depressed mood Thought Process: goal directed thought process Thought Content: reality based without delusions Suicidal Thoughts: denies suicidal thoughts Homicidal Thoughts: denies homicidal thoughts Hallucinations: no auditory hallucinations and no visual hallucinations Cognition: attention grossly intact and language grossly intact Estimated Intelligence: consistent with education level Vital Signs (Past 24 Hours): Last Vital Signs Temp 37.3 C 12/09/22 14:40 Pulse 96 H 12/09/22 14:40 Resp 16 12/09/22 14:40 BP 106/69 12/09/22 14:40 Pulse Ox 100 12/09/22 14:40 O2 Del Method Room Air 12/09/22 14:40 Review of Systems All systems reviewed & are unremarkable except as noted in HPI & below Results & Data (PSY) Laboratory Results 12/09/22 12/09/22 12/08/22 Range/Units 07:35 07:35 21:40 WBC 8.80 (4.8-10.8) K/ul RBC 3.48 L (4.20-5.40) M/uL Hgb 10.3 L D (12.0-16.0) g/dl Hct 29.4 L (37.0-47.0) % MCV 84.5 (80.0-100.0) fL MCH 29.6 (25.0-34.0) pg MCHC 35.0 (32.0-36.0) g/dL RDW Std Deviation 38.7 (36.4-46.3) fL RDW Coeff of Stephanie 12.6 (11.5-14.5) % Plt Count 174 (130-400) K/uL MPV 11.3 (9.4-12.4) fL Immature Gran % (Auto) 1.4 % Neut % (Auto) 61.7 % Lymph % (Auto) 21.3 % Oxford % (Auto) 15.3 % Eos % (Auto) 0.2 % Baso % (Auto) 0.1 % Neut # (Auto) 5.43 (1.40-6.50) K/uL Lymph # (Auto) 1.87 (1.20-3.40) K/uL Oxford # (Auto) 1.35 H (0.11-0.59) K/uL Eos # (Auto) 0.02 (0.00-0.50) K/uL Baso # (Auto) 0.01 (0.00-0.20) K/uL Immature Gran # (Auto) 0.12 (0.01-0.20) K/uL PT (9.0-12.0) Seconds INR (0.9-1.1) APTT (21.0-31.0) Seconds PTT Ratio VBG pH 7.42 H (7.36-7.41) VBG pCO2 26 L (38-50) mmHg VBG pO2 72 mmHg VBG HCO3 17 mmol/L VBG O2 Saturation 96.8 % VBG Base Excess -6.0 mEq/L Sodium 139 (136-145) mmol/L Potassium 3.4 L (3.5-5.1) mmol/L Chloride 112 H (98-107) mmol/L Carbon Dioxide 23 (21-32) mmol/L Anion Gap 4 (3-11) BUN 3 L (6-23) mg/dl Creatinine 0.54 L (0.6-1.2) mg/dl Est Cr Clr Drug Dosing 131.4 Est GFR ( Amer) > 150.0 ml/min Est GFR (Non-Af Amer) 135.8 ml/min BUN/Creatinine Ratio 5.6 L (10-20) Glucose 111 H (70-99(Fasting)) mg/dl Osmolality (280-300) mOsm/kg Lactate (0.4-2.0) mmol/L Calcium 8.0 L (8.6-10.3) mg/dl Phosphorus 3.3 D (2.5-4.9) mg/dl Magnesium 2.1 (1.7-2.4) mg/dl Total Bilirubin 0.5 (0.2-1.0) mg/dl AST 11 L (13-39) U/L ALT 9 (7-52) U/L Alkaline Phosphatase 30 L (34-104) U/L Troponin I High Sens (0-14) pg/ml Total Protein 5.6 L D (6.0-8.3) gm/dl Albumin 3.6 (3.4-5.0) gm/dl Globulin 2.0 L (2.5-4.0) gm/dl Albumin/Globulin Ratio 1.8 (0.9-2) Urine Test (Negative) Salicylates (3.0-30) mg/dl Urine Opiates Screen (Neg) U Codeine Confrm GC/MS Ur Morphine (GC/MS) Ur Hydrocodone (GC/MS) Ur Norhydrocodone Ur Noroxycodone Urine Oxycodone (GC/MS) U Oxymorphone GC/MS Ur Methadone, Qual (Neg) Ur Hydromorphone (GC/MS) Acetaminophen (10-30) ug/ml Urine Barbiturates (Neg) Ur Phencyclidine (PCP) (Neg) U Amphetamin/Meth Scrn (Neg) Urine MDEA MDMA (Ecstasy) Screen (Neg) MDMA Urine MDMA U Benzodiazepines Scrn (Neg) Ur Cocaine Metabolite (Neg) U Marijuana (THC) Screen (Neg) U Marijuana THC Carboxy Drug Screen Comment Ethyl Alcohol mg/dL (<10.0) mg/dl 12/08/22 12/08/22 12/08/22 Range/Units 21:06 21:06 21:06 WBC (4.8-10.8) K/ul RBC (4.20-5.40) M/uL Hgb (12.0-16.0) g/dl Hct (37.0-47.0) % MCV (80.0-100.0) fL MCH (25.0-34.0) pg MCHC (32.0-36.0) g/dL RDW Std Deviation (36.4-46.3) fL RDW Coeff of Stephanie (11.5-14.5) % Plt Count (130-400) K/uL MPV (9.4-12.4) fL Immature Gran % (Auto) % Neut % (Auto) % Lymph % (Auto) % Oxford % (Auto) % Eos % (Auto) % Baso % (Auto) % Neut # (Auto) (1.40-6.50) K/uL Lymph # (Auto) (1.20-3.40) K/uL [place] # (Auto) (0.11-0.59) K/uL Eos # (Auto) (0.00-0.50) K/uL Baso # (Auto) (0.00-0.20) K/uL Immature Gran # (Auto) (0.01-0.20) K/uL PT (9.0-12.0) Seconds INR (0.9-1.1) APTT (21.0-31.0) Seconds PTT Ratio VBG pH (7.36-7.41) VBG pCO2 (38-50) mmHg VBG pO2 mmHg VBG HCO3 mmol/L VBG O2 Saturation % VBG Base Excess mEq/L Sodium (136-145) mmol/L Potassium (3.5-5.1) mmol/L Chloride (98-107) mmol/L Carbon Dioxide (21-32) mmol/L Anion Gap (3-11) BUN (6-23) mg/dl Creatinine (0.6-1.2) mg/dl Est Cr Clr Drug Dosing Est GFR ( Amer) ml/min Est GFR (Non-Af Amer) ml/min BUN/Creatinine Ratio (10-20) Glucose (70-99(Fasting)) mg/dl Osmolality 284 (280-300) mOsm/kg Lactate (0.4-2.0) mmol/L Calcium (8.6-10.3) mg/dl Phosphorus (2.5-4.9) mg/dl Magnesium (1.7-2.4) mg/dl Total Bilirubin (0.2-1.0) mg/dl AST (13-39) U/L ALT (7-52) U/L Alkaline Phosphatase (34-104) U/L Troponin I High Sens (0-14) pg/ml Total Protein (6.0-8.3) gm/dl Albumin (3.4-5.0) gm/dl Globulin (2.5-4.0) gm/dl Albumin/Globulin Ratio (0.9-2) Urine Test (Negative) Salicylates < 3.0 L (3.0-30) mg/dl Urine Opiates Screen (Neg) U Codeine Confrm GC/MS Ur Morphine (GC/MS) Ur Hydrocodone (GC/MS) Ur Norhydrocodone Ur Noroxycodone Urine Oxycodone (GC/MS) U Oxymorphone GC/MS Ur Methadone, Qual (Neg) Ur Hydromorphone (GC/MS) Acetaminophen < 3 L (10-30) ug/ml Urine Barbiturates (Neg) Ur Phencyclidine (PCP) (Neg) U Amphetamin/Meth Scrn (Neg) Urine MDEA MDMA (Ecstasy) Screen (Neg) MDMA Urine MDMA U Benzodiazepines Scrn (Neg) Ur Cocaine Metabolite (Neg) U Marijuana (THC) Screen (Neg) U Marijuana THC Carboxy Drug Screen Comment Ethyl Alcohol mg/dL < 10.0 (<10.0) mg/dl 12/08/22 12/08/22 12/08/22 Range/Units 21:06 16:22 16:22 WBC (4.8-10.8) K/ul RBC (4.20-5.40) M/uL Hgb (12.0-16.0) g/dl Hct (37.0-47.0) % MCV (80.0-100.0) fL MCH (25.0-34.0) pg MCHC (32.0-36.0) g/dL RDW Std Deviation (36.4-46.3) fL RDW Coeff of Stephanie (11.5-14.5) % Plt Count (130-400) K/uL MPV (9.4-12.4) fL Immature Gran % (Auto) % Neut % (Auto) % Lymph % (Auto) % Oxford % (Auto) % Eos % (Auto) % Baso % (Auto) % Neut # (Auto) (1.40-6.50) K/uL Lymph # (Auto) (1.20-3.40) K/uL Oxford # (Auto) (0.11-0.59) K/uL Eos # (Auto) (0.00-0.50) K/uL Baso # (Auto) (0.00-0.20) K/uL Immature Gran # (Auto) (0.01-0.20) K/uL PT 12.5 H (9.0-12.0) Seconds INR 1.2 H (0.9-1.1) APTT 22.9 (21.0-31.0) Seconds PTT Ratio 0.8 VBG pH (7.36-7.41) VBG pCO2 (38-50) mmHg VBG pO2 mmHg VBG HCO3 mmol/L VBG O2 Saturation % VBG Base Excess mEq/L Sodium 136 (136-145) mmol/L Potassium 3.6 (3.5-5.1) mmol/L Chloride 103 (98-107) mmol/L Carbon Dioxide 15 L (21-32) mmol/L Anion Gap 18 H (3-11) BUN 8 (6-23) mg/dl Creatinine 0.73 (0.6-1.2) mg/dl Est Cr Clr Drug Dosing Not Reportable Est GFR ( Amer) 137.4 ml/min Est GFR (Non-Af Amer) 118.6 ml/min BUN/Creatinine Ratio 11.0 (10-20) Glucose 111 H (70-99(Fasting)) mg/dl Osmolality (280-300) mOsm/kg Lactate 1.4 (0.4-2.0) mmol/L Calcium 9.8 (8.6-10.3) mg/dl Phosphorus 1.1 L* (2.5-4.9) mg/dl Magnesium 1.4 L (1.7-2.4) mg/dl Total Bilirubin 0.9 (0.2-1.0) mg/dl AST 16 (13-39) U/L ALT 14 (7-52) U/L Alkaline Phosphatase 44 (34-104) U/L Troponin I High Sens 5.6 (0-14) pg/ml Total Protein 8.0 (6.0-8.3) gm/dl Albumin 5.0 (3.4-5.0) gm/dl Globulin 3.0 (2.5-4.0) gm/dl Albumin/Globulin Ratio 1.7 (0.9-2) Urine Test (Negative) Salicylates (3.0-30) mg/dl Urine Opiates Screen (Neg) U Codeine Confrm GC/MS Ur Morphine (GC/MS) Ur Hydrocodone (GC/MS) Ur Norhydrocodone Ur Noroxycodone Urine Oxycodone (GC/MS) U Oxymorphone GC/MS Ur Methadone, Qual (Neg) Ur Hydromorphone (GC/MS) Acetaminophen (10-30) ug/ml Urine Barbiturates (Neg) Ur Phencyclidine (PCP) (Neg) U Amphetamin/Meth Scrn (Neg) Urine MDEA MDMA (Ecstasy) Screen (Neg) MDMA Urine MDMA U Benzodiazepines Scrn (Neg) Ur Cocaine Metabolite (Neg) U Marijuana (THC) Screen (Neg) U Marijuana THC Carboxy Drug Screen Comment Ethyl Alcohol mg/dL (<10.0) mg/dl 12/08/22 12/08/22 12/08/22 Range/Units 16:22 06:21 06:21 WBC 11.25 H (4.8-10.8) K/ul RBC 4.33 (4.20-5.40) M/uL Hgb 13.2 (12.0-16.0) g/dl Hct 35.9 L (37.0-47.0) % MCV 82.9 (80.0-100.0) fL MCH 30.5 (25.0-34.0) pg MCHC 36.8 H (32.0-36.0) g/dL RDW Std Deviation 36.2 L (36.4-46.3) fL RDW Coeff of Stephanie 11.9 (11.5-14.5) % Plt Count 258 (130-400) K/uL MPV 11.1 (9.4-12.4) fL Immature Gran % (Auto) 0.4 % Neut % (Auto) 87.7 % Lymph % (Auto) 5.2 % Oxford % (Auto) 6.6 % Eos % (Auto) 0.0 % Baso % (Auto) 0.1 % Neut # (Auto) 9.87 H (1.40-6.50) K/uL Lymph # (Auto) 0.59 L (1.20-3.40) K/uL Oxford # (Auto) 0.74 H (0.11-0.59) K/uL Eos # (Auto) 0.00 (0.00-0.50) K/uL Baso # (Auto) 0.01 (0.00-0.20) K/uL Immature Gran # (Auto) 0.04 (0.01-0.20) K/uL PT (9.0-12.0) Seconds INR (0.9-1.1) APTT (21.0-31.0) Seconds PTT Ratio VBG pH (7.36-7.41) VBG pCO2 (38-50) mmHg VBG pO2 mmHg VBG HCO3 mmol/L VBG O2 Saturation % VBG Base Excess mEq/L Sodium (136-145) mmol/L Potassium (3.5-5.1) mmol/L Chloride (98-107) mmol/L Carbon Dioxide (21-32) mmol/L Anion Gap (3-11) BUN (6-23) mg/dl Creatinine (0.6-1.2) mg/dl Est Cr Clr Drug Dosing Est GFR ( Amer) ml/min Est GFR (Non-Af Amer) ml/min BUN/Creatinine Ratio (10-20) Glucose (70-99(Fasting)) mg/dl Osmolality (280-300) mOsm/kg Lactate (0.4-2.0) mmol/L Calcium (8.6-10.3) mg/dl Phosphorus (2.5-4.9) mg/dl Magnesium (1.7-2.4) mg/dl Total Bilirubin (0.2-1.0) mg/dl AST (13-39) U/L ALT (7-52) U/L Alkaline Phosphatase (34-104) U/L Troponin I High Sens (0-14) pg/ml Total Protein (6.0-8.3) gm/dl Albumin (3.4-5.0) gm/dl Globulin (2.5-4.0) gm/dl Albumin/Globulin Ratio (0.9-2) Urine Test Negative (Negative) Salicylates (3.0-30) mg/dl Urine Opiates Screen (Neg) U Codeine Confrm GC/MS Pending Ur Morphine (GC/MS) Pending Ur Hydrocodone (GC/MS) Pending Ur Norhydrocodone Pending Ur Noroxycodone Pending Urine Oxycodone (GC/MS) Pending U Oxymorphone GC/MS Pending Ur Methadone, Qual (Neg) Ur Hydromorphone (GC/MS) Pending Acetaminophen (10-30) ug/ml Urine Barbiturates (Neg) Ur Phencyclidine (PCP) (Neg) U Amphetamin/Meth Scrn (Neg) Urine MDEA Pending MDMA (Ecstasy) Screen (Neg) MDMA Pending Urine MDMA Pending U Benzodiazepines Scrn (Neg) Ur Cocaine Metabolite (Neg) U Marijuana (THC) Screen (Neg) U Marijuana THC Carboxy Pending Drug Screen Comment Pending Ethyl Alcohol mg/dL (<10.0) mg/dl 12/08/22 Range/Units 06:21 WBC (4.8-10.8) K/ul RBC (4.20-5.40) M/uL Hgb (12.0-16.0) g/dl Hct (37.0-47.0) % MCV (80.0-100.0) fL MCH (25.0-34.0) pg MCHC (32.0-36.0) g/dL RDW Std Deviation (36.4-46.3) fL RDW Coeff of Stephanie (11.5-14.5) % Plt Count (130-400) K/uL MPV (9.4-12.4) fL Immature Gran % (Auto) % Neut % (Auto) % Lymph % (Auto) % Oxford % (Auto) % Eos % (Auto) % Baso % (Auto) % Neut # (Auto) (1.40-6.50) K/uL Lymph # (Auto) (1.20-3.40) K/uL Oxford # (Auto) (0.11-0.59) K/uL Eos # (Auto) (0.00-0.50) K/uL Baso # (Auto) (0.00-0.20) K/uL Immature Gran # (Auto) (0.01-0.20) K/uL PT (9.0-12.0) Seconds INR (0.9-1.1) APTT (21.0-31.0) Seconds PTT Ratio VBG pH (7.36-7.41) VBG pCO2 (38-50) mmHg VBG pO2 mmHg VBG HCO3 mmol/L VBG O2 Saturation % VBG Base Excess mEq/L Sodium (136-145) mmol/L Potassium (3.5-5.1) mmol/L Chloride (98-107) mmol/L Carbon Dioxide (21-32) mmol/L Anion Gap (3-11) BUN (6-23) mg/dl Creatinine (0.6-1.2) mg/dl Est Cr Clr Drug Dosing Est GFR ( Amer) ml/min Est GFR (Non-Af Amer) ml/min BUN/Creatinine Ratio (10-20) Glucose (70-99(Fasting)) mg/dl Osmolality (280-300) mOsm/kg Lactate (0.4-2.0) mmol/L Calcium (8.6-10.3) mg/dl Phosphorus (2.5-4.9) mg/dl Magnesium (1.7-2.4) mg/dl Total Bilirubin (0.2-1.0) mg/dl AST (13-39) U/L ALT (7-52) U/L Alkaline Phosphatase (34-104) U/L Troponin I High Sens (0-14) pg/ml Total Protein (6.0-8.3) gm/dl Albumin (3.4-5.0) gm/dl Globulin (2.5-4.0) gm/dl Albumin/Globulin Ratio (0.9-2) Urine Test (Negative) Salicylates (3.0-30) mg/dl Urine Opiates Screen Pos H (Neg) U Codeine Confrm GC/MS Ur Morphine (GC/MS) Ur Hydrocodone (GC/MS) Ur Norhydrocodone Ur Noroxycodone Urine Oxycodone (GC/MS) U Oxymorphone GC/MS Ur Methadone, Qual Neg (Neg) Ur Hydromorphone (GC/MS) Acetaminophen (10-30) ug/ml Urine Barbiturates Neg (Neg) Ur Phencyclidine (PCP) Neg (Neg) U Amphetamin/Meth Scrn Neg (Neg) Urine MDEA MDMA (Ecstasy) Screen Pos H (Neg) MDMA Urine MDMA U Benzodiazepines Scrn Neg (Neg) Ur Cocaine Metabolite Neg (Neg) U Marijuana (THC) Screen Pos H (Neg) U Marijuana THC Carboxy Drug Screen Comment Ethyl Alcohol mg/dL (<10.0) mg/dl Medications Administered Bupropion HCl (Bupropion Xl 300 Mg Tabcr) 300 mg PO QAM PEPE Stop: 01/08/23 08:59 Last Admin: 12/09/22 08:26 Dose: 300 mg Documented By: TG Escitalopram Oxalate (Escitalopram Oxalate 10 Mg Tab) 30 mg PO DAILY PEPE Stop: 01/08/23 08:59 Last Admin: 12/09/22 08:26 Dose: 30 mg Documented By: TG Gabapentin (Gabapentin 100 Mg Cap) 200 mg PO BID PEPE Stop: 01/07/23 23:50 Last Admin: 12/09/22 08:26 Dose: 200 mg Documented By: Admin: 12/09/22 00:30 Dose: 200 mg Documented By: WILBUR Metoclopramide HCl (Metoclopramide Hcl Inj 5 Mg/Ml 2 Ml Vial) 10 mg IV Q6H PEPE Stop: 01/08/23 13:14 Last Admin: 12/09/22 14:09 Dose: Not Given Documented By: TG Coding Level of Care Code 401[address] [facility] Intl Hosp Care Lvl 2 Diagnoses Anxiety and depression F41.9; F32.A Cyclic vomiting syndrome R11.15
--- NOTE | 2022-12-09 15:59 | Ultrasound Report ---
PELVIC ULTRASOUND CLINICAL HISTORY: Dermoid cyst. COMPARISON STUDY: CT of the abdomen and pelvis performed earlier today. TECHNIQUE: Transabdominal and transvaginal sonography of the pelvis was performed. FINDINGS: Uterus measures 7.5 x 3.7 x 5.4 cm. Endometrium measures 6 mm in thickness. A small amount of fluid within the cul-de-sac is noted. There is color flow within each ovary. The right ovary measu res 8.3 x 4.8 x 4.4 cm and contains a complex mixed solid and cystic lesion measuring 5.9 x 4.6 x 5.4 cm. This corresponds to the fat and calcium containing lesion by CT. The left ovary is normal, measu ring 3 x 1.4 x 1.9 cm. IMPRESSION: 1. 5.9 cm right ovarian lesion consistent with a dermoid cyst, as shown on CT performed earlier today . 2. Small amount of fluid within the pelvis, likely physiologic. 3. Normal sonographic appearance of the uterus and left ovary. ACT 112: Negative or not required by law. Electronically signed by: Abdoulaye Osman M.D. 12/09/2022 3:57 PM
--- NOTE | 2022-12-09 16:44 | OB/GYN Consultation ---
Date of Consultation December 09, 2022 Assessment & Plan (1) Dermoid cyst: 22-year-old G0 female with known history of right ovarian cystic lesion suggesting dermoid since for the last 3 years. It has been stable with no change in the size per her mother and herself. No records available from [place]. Here findings are similar and patient desires to follow-up with her own STEREO EQUIPMENT REPAIRER back at home. She was just visiting here. I do not think it is contributing to her pain, no signs or symptoms of ovarian torsion, Continue to monitor closely, follow-up with her STEREO EQUIPMENT REPAIRER. History of Present Illness Attending Physician: Chester Hooker MD History of Present Illness Patient is a 22-year-old G0 female who was admitted for cyclic vomiting/cannabis use syndrome by medicine. On admission she had abdominal pain and she had CT of abdomen which showed Rt. adnexal cystic mass. IMPRESSION: 1. No definite bowel wall thickening or obstruction. 2. Normal appendix. 3. Periportal/pericholecystic edema with mild mesenteric edema and trace pelvic fluid. This favors overhydration. Recommend correlation with LFTs. 4. A 5.8 cm cystic lesion within the right adnexa consistent with a right ovarian dermoid as described above. Follow-up gynecologic consultation recommended. She feels better now no more abdominal pain. She states she has known right ovarian cyst suggesting dermoid cyst for last 3 years. 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 I spoke with her mother over the phone and she states she had ultrasound 2 weeks ago and that her cyst was 5 cm and she was told that this was normal and come back for follow-ups. We also performed pelvic ultrasound here today for further information about the cystic lesion. FINDINGS: Uterus measures 7.5 x 3.7 x 5.4 cm. Endometrium measures 6 mm in thickness. A small amount of fluid within the cul-de-sac is noted. There is color flow within each ovary. The right ovary measures 8.3 x 4.8 x 4.4 cm and contains a complex mixed solid and cystic lesion measuring 5.9 x 4.6 x 5.4 cm. This corresponds to the fat and calcium containing lesion by CT. The left ovary is normal, measuring 3 x 1.4 x 1.9 cm. IMPRESSION: 1. 5.9 cm right ovarian lesion consistent with a dermoid cyst, as shown on CT performed earlier today. 2. Small amount of fluid within the pelvis, likely physiologic. 3. Normal sonographic appearance of the uterus and left ovary. She and her mother understands, we are unable to tell exactly what it is without expiratory laparotomy and pathology. But this lesion appears like dermoid cyst. They are out of that and she wants to follow-up with her own gravel machine operator. She gets her periods every 27 to 28 days, lasting for 5 days she has some crampy days first 2 or 3 days. She is not sexually active currently and does not retained anything for contraception. She has been sexually active in the past and she had no pain or problems. She denies history of STDs. Allergies Allergy/AdvReac Type Severity Reaction Status Date / Time doxycycline AdvReac Intermediate Vomiting Verified 12/08/22 03:01 Home Medications Medication Instructions Recorded Confirmed Type bupropion HCl 300 mg 24 hr tablet, 300 mg PO QAM 12/08/22 12/08/22 History extended release (Wellbutrin XL) escitalopram oxalate 20 mg tablet 30 mg PO DAILY 12/08/22 12/08/22 History (Lexapro) gabapentin 100 mg capsule 200 mg PO BID 12/08/22 12/08/22 History propranolol 20 mg tablet 20 mg PO DIRECTED PRN Anxiety 12/08/22 12/08/22 History Patient History Medical History Anxiety and depression Cannabis hyperemesis syndrome concurrent with and due to cannabis dependence Vapes nicotine containing substance Surgical History No pertinent past surgical history Social History Smoking Status: Current every day smoker Tobacco Type: E-cigarettes / Vaping Second Hand Exposure: No; Do You Dip or Chew Tobacco: No; Tobacco Cessation Education Requested by Patient: No Hx Alcohol Use: Yes Hx Substance Use: Yes Preferred Language: Serbian Form Setter Helper Required: No Beliefs That Will Affect Care: None Current Living Situation: Parent Feels Safe at Home: Yes Safety Concerns: Feels Safe At This Time Assistive Devices: None Review of Systems Constitutional: as per Subjective / HPI Physical Exam Constitutional: WD/WN, vitals as above well developed and comfortable Very nice female Results & Data Vital Signs (Past 12 Hours) Vital Signs Temp Pulse Resp BP Pulse Ox O2 Del Method 12/09/22 14:40 37.3 C 96 H 16 106/69 100 Room Air 12/09/22 07:33 36.9 C 77 14 108/75 100 Room Air
[2022-12-09] MEDS: METOCLOPRAMIDE HCL INJ 5 MG/ML 2 ML VIAL IV PRN (17:24)
[2022-12-09] MEDS ORDERED: LORazepam 0.5 MG TAB SL STA (17:36)
[2022-12-09] MEDS: FAMOTIDINE 20 MG in SYRINGE 3 ML IV SCH (20:27)
[2022-12-10] MEDS: ACETAMINOPHEN 325 MG TAB PO PRN ×3 (06:19→19:49)
--- NOTE | 2022-12-10 07:23 | Ultrasound Report ---
US liver CLINICAL HISTORY: Pericholecystic edema, abdominal pain. COMPARISON STUDY: CT of the abdomen and pelvis December 09, 2022. FINDINGS: The liver is sonographically normal. There is no biliary ductal dilatation. Common bile aracelis t measures 3 mm in caliber. Pancreas is unremarkable by sonography. No gallstones are identified. The re is no gallbladder wall thickening. No sonographic Dooley sign was elicited. There is trace pericho lecystic fluid. Gallbladder wall thickening/pericholecystic fluid shown on CT has decreased. There is no right hydronephrosis. IMPRESSION: 1. No sonographic evidence for acute cholecystitis. No gallstones. No biliary ductal dilatation. 2. Trace pericholecystic fluid. Gallbladder wall thickening/pericholecystic fluid on CT of December 09, 2022 has decreased. ACT 112: Negative or not required by law. Electronically signed by: Abdoulaye Osman M.D. 12/10/2022 7:22 AM
[2022-12-10 08:28] LABS: Basophils # (auto) 0.02 K/uL (0.00-0.20); Basophils % (auto) 0.2 %; Eosinophils # (auto) 0.03 K/uL (0.00-0.50); Eosinophils % (auto) 0.4 %; Hematocrit (blood only) 33.7 % (37.0-47.0); Hemoglobin 11.8 g/dl (12.0-16.0); Immature Granulocytes # (auto) 0.05 K/uL (0.01-0.20); Immature Granulocytes % (auto) 0.6 %; Lymphocytes # (auto) 1.69 K/uL (1.20-3.40); Lymphocytes % (auto) 19.9 %; Mean Corpuscular Hemoglobin 30.3 pg (25.0-34.0); Mean Corpuscular Volume 86.4 fL (80.0-100.0); Monocytes % (auto) 10.6 %; Neutrophils # (auto) 5.79 K/uL (1.40-6.50); Neutrophils % (auto) 68.3 %; Platelet Count 183 K/uL (130-400); RDW Coefficient of Variation 12.3 % (11.5-14.5); RDW Standard Deviation 38.6 fL (36.4-46.3); White Blood Count 8.48 K/ul (4.8-10.8)
[2022-12-10] MEDS: FAMOTIDINE 20 MG in SYRINGE 3 ML IV SCH ×2 (09:04→19:57)
[2022-12-10] MEDS: GABAPENTIN 100 MG CAP PO SCH ×2 (09:06→19:56)
[2022-12-10 09:18] LABS: Albumin Globulin Ratio 1.7 (0.9-2); Albumin Level 4.1 gm/dl (3.4-5.0); BUN Creatinine Ratio 5.9 (10-20); Bilirubin,Total 0.6 mg/dl (0.2-1.0); Calcium 8.9 mg/dl (8.6-10.3); Creatinine Clr Calc Pharmacy 104.4 ml/min; Est GFR (African American) 145.9 ml/min; Est GFR (Non-African American) 125.9 ml/min; Globulin 2.4 gm/dl (2.5-4.0); Magnesium 1.9 mg/dl (1.7-2.4); Phosphorus 3.2 mg/dl (2.5-4.9); Potassium 3.3 mmol/L (3.5-5.1); Total Protein 6.5 gm/dl (6.0-8.3)
[2022-12-10] MEDS: POTASSIUM CHLORIDE CRTAB 20 MEQ TABCR PO SCH ×3 (09:37→19:56)
--- NOTE | 2022-12-10 15:29 | Communication Note ---
Date of Service: December 10, 2022 patient had some vomiting overnight so I did write to hold Wellbutrin and Lexapro this am. Case discussed briefly with hospitalist service, seems to have some med seeking component around Ativan. Since seemed somewhat jittery yesterday and ongoing anxiety, may benefit from decrease in Wellbutrin and/or Lexapro if willing. Will not hold for long given risk of discontinuation syndrome with Lexapro could contribute to N/D.
--- NOTE | 2022-12-10 15:30 | Electrocardiogram Report ---
Test Reason : Blood Pressure : / mmHG Vent. Rate : 075 BPM Atrial Rate : 075 BPM P-R Int : 098 ms QRS Dur : 076 ms QT Int : 400 ms P-R-T Axes : 062 079 045 degrees QTc Int : 446 ms Sinus rhythm with sinus arrhythmia with short SD Otherwise normal ECG When compared with ECG of 08-DEC-2022 16:24, Non-specific change in ST segment in Inferior leads T wave inversion no longer evident in Anterior leads Confirmed by Kevin Arias ([id number]) on 12/10/2022 3:29:46 PM Referred By: REFERRED SELF Confirmed By:Kevin Arias
[2022-12-10] MEDS: SUCRALFATE 1 GM/10 ML UDC PO SCH ×2 (16:54→19:57)
--- NOTE | 2022-12-10 19:25 | Hospitalist Progress Note ---
Date of Service December 10, 2022 Assessment & Plan (1) Intractable vomiting: Plan: pt reports no THC use in several weeks despite such presented with intractable vomiting cannot rule out cyclic vomiting syndrome / abdominal migraines as she does report occasional headaches and mother has migraines either way her symptoms are improved will advance diet to regular watch overnight if she does well overnight can d/c home would benefit from GI f/u post-discharge for consideration of EGD (2) Cannabis hyperemesis syndrome concurrent with and due to cannabis dependence: Plan: recent hospitalization on [place] for such now with recurrent hospitalization for intractable vomiting see above CT a/p at admission without acute findings LFTs wnl lipase wnl (3) GERD (gastroesophageal reflux disease): Plan: cont IV pepcid change to PO pepcid at d/c and send home with such will recommend she f/u with GI near her home on [address] for consideration of EGD (4) Anxiety and depression: Plan: lexopro, wellbutrin both on hold cont gabapentin ativan prn - try to limit such Psych consult appreciated (5) Vapes nicotine containing substance: Plan: 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 either way resolved glucose was modestly high upon admission but subsequent glucose levels were wnl check a hemoglobin a1c in am TSH today wnl (7) Hypomagnesemia: Plan: replaced resolved (8) Hypophosphatemia: Plan: replaced resolved (9) Dermoid cyst: Plan: 5.8 cm cystic lesion within the right adnexa consistent with a right ovarian dermoid appreciate [place] consultation will need f/u with PCP or gynecological assistant near her hometown Plan home tomorrow? Admission and Anticipated Discharge Date Admission Date: December 08, 2022 Subjective patient resting comfortably in bed states she is tolerating full liquids no emesis today she is having reflux symptoms (burping, etc) and has similar symptoms at home she does not take H2 gustavo or PPI on regular basis patient states she has not used THC in 2+ weeks was hospitalized near her home town on [address] [place] within the last month for similar symptoms (intractable vomiting, etc) has never had EGD pt reports occasional headaches mother has migraines Review of Systems Review of Systems: pulm - no dyspnea GI - no hematemesis, no coffee-ground emesis; did have "dark stool" with her last bowel movement; mild left-sided abdominal discomfort cv - no chest pain Physical Exam Physical Exam: gen - NAD, looks well mouth - MMM heart - RRR, s1 s2, no murmur lungs - CTA b/l abd - soft NT ND BS+ ext - no edema, pulses 2+ b/l psych - a/o x 3 Results & Data Results & Data Vital Signs (Past 12 Hours) Vital Signs Temp Pulse Resp BP BP Pulse Ox O2 Del Method 12/10/22 14:56 36.9 C 61 16 118/80 99 Room Air 12/10/22 07:44 37 C 99 H 16 108/68 99 Room Air Laboratory Results Laboratory Results - last 24 hr 12/10/22 12/10/22 12/10/22 07:42 07:42 07:42 WBC 8.48 RBC 3.90 L Hgb 11.8 L Hct 33.7 L MCV 86.4 MCH 30.3 MCHC 35.0 RDW Std Deviation 38.6 RDW Coeff of Stephanie 12.3 Plt Count 183 MPV 11.0 Immature Gran % (Auto) 0.6 Neut % (Auto) 68.3 Lymph % (Auto) 19.9 [place] % (Auto) 10.6 Eos % (Auto) 0.4 Baso % (Auto) 0.2 Neut # (Auto) 5.79 Lymph # (Auto) 1.69 [place] # (Auto) 0.90 H Eos # (Auto) 0.03 Baso # (Auto) 0.02 Immature Gran # (Auto) 0.05 Sodium 138 Potassium 3.3 L Chloride 106 Carbon Dioxide 26 Anion Gap 6 BUN 4 L Creatinine 0.68 Est Cr Clr Drug Dosing 104.4 Est GFR ( Amer) 145.9 Est GFR (Non-Af Amer) 125.9 BUN/Creatinine Ratio 5.9 L Glucose 85 Calcium 8.9 Phosphorus 3.2 Magnesium 1.9 Total Bilirubin 0.6 AST 11 L ALT 12 Alkaline Phosphatase 34 Total Protein 6.5 Albumin 4.1 Globulin 2.4 L Albumin/Globulin Ratio 1.7 25-OH Vitamin D Total 37.8 TSH Stool Occult Bld Scrn 12/10/22 12/10/22 07:42 17:55 WBC RBC Hgb Hct MCV MCH MCHC RDW Std Deviation RDW Coeff of Stephanie Plt Count MPV Immature Gran % (Auto) Neut % (Auto) Lymph % (Auto) [place] % (Auto) Eos % (Auto) Baso % (Auto) Neut # (Auto) Lymph # (Auto) [place] # (Auto) Eos # (Auto) Baso # (Auto) Immature Gran # (Auto) Sodium Potassium Chloride Carbon Dioxide Anion Gap BUN Creatinine Est Cr Clr Drug Dosing Est GFR ( Amer) Est GFR (Non-Af Amer) BUN/Creatinine Ratio Glucose Calcium Phosphorus Magnesium Total Bilirubin AST ALT Alkaline Phosphatase Total Protein Albumin Globulin Albumin/Globulin Ratio 25-OH Vitamin D Total TSH 1.625 Stool Occult Bld Scrn Negative PG Care Time/CCT Total # of Minutes Spent Total Time Spent with Patient: Total time spent is greater than 50% in coordination of care (as documented) at patient's floor/unit and/or counseling patient: Coding Level of Care Code 87046 SUB INP/OBS CARE 2/35MIN Diagnoses Intractable vomiting R11.10 Cannabis hyperemesis syndrome concurrent with and due to cannabis dependence F12.288 GERD (gastroesophageal reflux disease) K21.9 Anxiety and depression F41.9; F32.A Vapes nicotine containing substance Z72.0 High anion gap metabolic acidosis E87.29 Hypomagnesemia E83.42 Hypophosphatemia E83.39 Dermoid cyst D36.9
[2022-12-10] MEDS: METOCLOPRAMIDE HCL INJ 5 MG/ML 2 ML VIAL IV PRN (19:52)
[2022-12-11] MEDS: SUCRALFATE 1 GM/10 ML UDC PO SCH ×3 (08:19→18:01)
[2022-12-11] MEDS: GABAPENTIN 100 MG CAP PO SCH (08:20)
[2022-12-11] MEDS: FAMOTIDINE 20 MG in SYRINGE 3 ML IV SCH (08:22)
[2022-12-11 10:12] LABS: BUN Creatinine Ratio 11.1 (10-20); Creatinine Clr Calc Pharmacy 98.6 ml/min; Est GFR (African American) 139.7 ml/min; Est GFR (Non-African American) 120.6 ml/min; Potassium 3.8 mmol/L (3.5-5.1)
[2022-12-11 10:42] LABS: Estimated Average Glucose 103 mg/dl; Hemoglobin A1C 5.2 % (4.5-5.6)
[2022-12-11] MEDS ORDERED: DICYCLOMINE HCL 10 MG CAP PO ONE (12:15)
[2022-12-11] MEDS ORDERED: PANTOprazole 40 MG TAB PO SCH (12:30)
[2022-12-11 13:04] LABS: C Reactive Protein 0.54 mg/dl (0-0.5)
[2022-12-11 13:26] LABS: HBSAG NON-REACTIVE (NON-REACTIVE); Hepatitis A Antibody IgM NON-REACTIVE (NON-REACTIVE); Hepatitis B Core Antibody IgM NON-REACTIVE (NON-REACTIVE)
--- NOTE | 2022-12-11 15:45 | XRay Report ---
KUB HISTORY: intermittent abd pain, eval stool load COMPARISON: Abdomen and pelvis CT 12/09/2022. FINDINGS: The bowel gas pattern is unremarkable. There are no dilated loops of small bowel to suggest an obstruction. No renal calculi. No ureteral calculi. No pneumoperitoneum or pneumatosis. Small am ount of stool seen within the colon. Posterior fusion defect at S1. This is developmental. A 7 mm landen cification within the right pelvis corresponds the patient's known ovarian dermoid. IMPRESSION: 1. Nonobstructive bowel gas pattern. 2. A 7 mm calcification within the right pelvis corresponds to the patient's known ovarian dermoid. ACT 112: Negative or not required by law. Electronically signed by: José Miguel Shirley M.D. 12/11/2022 3:44 PM
--- NOTE | 2022-12-11 18:56 | Discharge Summary ---
Date of Service December 11, 2022 Admission HPI Per Admitting Provider Yolanda Monreal is a 22 year old female with history of cannabis hyperemesis syndrome who presents to the ER with her typical symptoms of abdominal pain, nausea and vomiting however she has noted had cannabis for the last 2 weeks. Symptoms started yesterday after drinking alcohol at the football game. Abdominal pain 10/10 at worse, 5/10 currently, no radiation. No diarrhea. No BM for the last 2 days, feeling constipated. Did not take her medications this morning. No urinary or respiratory complaints. History of cannabis hyperemesis for the last 1.5 years with multiple ER visits. Discharge Exam gen - NAD, looks well mouth - MMM heart - RRR, s1 s2, no murmur lungs - CTA b/l abd - soft NT ND BS+ ext - no edema, pulses 2+ b/l psych - a/o x 3 Discharge Data Allergies Allergy/AdvReac Type Severity Reaction Status Date / Time doxycycline AdvReac Intermediate Vomiting Verified 12/08/22 03:01 Consultations 12/09/22 10:25 Consult Psychiatry Routine 12/09/22 12:12 Consult Gynecology Routine 12/10/22 15:55 Consult Patient Rep [Consult Patient Services] Routine 12/11/22 17:50 Burn CD for patient Stat Ordered Studies 12/09/22 09:18 CT abd pelvis IV con only Urgent 12/09/22 12:38 US pelvic complete Urgent 12/09/22 12:39 US transvaginal Urgent 12/09/22 16:25 US RUQ [US liver] Routine Hospital Course (1) Intractable vomiting: pt reports no THC use in several weeks despite such presented with intractable vomiting cannot rule out cyclic vomiting syndrome / abdominal migraines as she does report occasional headaches and mother has migraines either way her symptoms are improved will advance diet to regular watch overnight if she does well overnight can d/c home would benefit from GI f/u post-discharge for consideration of EGD (2) Cannabis hyperemesis syndrome concurrent with and due to cannabis dependence: recent hospitalization on [place] for such now with recurrent hospitalization for intractable vomiting see above CT a/p at admission without acute findings LFTs wnl lipase wnl (3) GERD (gastroesophageal reflux disease): cont IV pepcid change to PO pepcid at d/c and send home with such will recommend she f/u with GI near her home on [place] [address] for consideration of EGD (4) Anxiety and depression: lexopro, wellbutrin both on hold cont gabapentin ativan prn - try to limit such Psych consult appreciated (5) Vapes nicotine containing substance: Declines nicotine patch Data Miner to quit (6) High anion gap metabolic acidosis: present on admission ?starvation ketosis vs alcoholic ketosis from drinking this past weekend? either way resolved glucose was modestly high upon admission but subsequent glucose levels were wnl check a hemoglobin a1c in am TSH today wnl (7) Hypomagnesemia: replaced resolved (8) Hypophosphatemia: replaced resolved (9) Dermoid cyst: 5.8 cm cystic lesion within the right adnexa consistent with a right ovarian dermoid appreciate head of commission department consultation will need f/u with PCP or manager deli near her hometown Plan home tomorrow? Discharge Plan Discharge Items Patient Disposition: Home - Self-Care Reason For Visit: Nausea & Vomiting Discharge Diagnosis: 1. nausea & vomiting - resolved 2. GERD (gastroesophageal reflux disease) - follow-up needed with gastroenterology 3. dermoid cyst of right ovary - follow-up needed with gynecology 4. mild iron deficiency 5. history of cannabis use 6. depression/anxiety Activity: Resume your previous activity Non-emergency contact: Primary Care Provider Call non-emergency contact if: you have any medication questions, your symptoms worsen and you have a fever Follow-up/Referrals: Dr. Yuri Gardner [Other] - 12/18/22 1:50 pm () Diet: Regular Addtl Attending Provider Instructions: Erasmo Erickson were hospitalized at [facility] for severe nausea, vomiting, and abdominal pain. These symptoms gradually improved over the course of your stay. A diet was resumed and slowly advanced. It was uncertain if your symptoms were due to previous use of cannabis. You reported frequent reflux symptoms. These symptoms were treated with a combination of sucralfate, pepcid, and later on pantoprazole. Your CT scan of the abdomen was normal except for a cyst of the right ovary. Our gynecology providers saw you in consult and recommended follow-up with your manager transfusion back home on [place] [address]. They did not feel that the cyst was contributing to your symptoms of nausea/vomiting. We performed an ultrasound of your gall bladder and this did now show any gallstones or gall bladder sludge. We have low suspicion that your symptoms are coming from the gall bladder. Our psychiatry team also saw you in consult. They recommended perhaps lowering your lexapro (escitalopram) dose down to 20mg. Please discuss this with your family doctor back home. Finally, you have very mild iron deficiency. You would benefit from iron supplementation. Recommendations - 1. For GERD/"reflux" - * pantoprazole 40mg once daily before breakfast x 30 days * sucralfate 1gm twice daily x 7 days * see handouts on tips to prevent/control acid reflux 2. Upon return to [place] please ask your family doctor for a referral to see a armature winder helper repair. Given how sick you have been over the last year or two with your stomach you may need an "upper endoscopy" (EGD) to rule out various conditions. 3. If your celiac disease screening test is abnormal we will call you with that test result. 4. For nausea/vomiting - ondansetron 4mg every 6 hours as needed. 5. For low iron - * ferrous sulfate (you can purchase [id number]) 325mg once daily * know that iron supplements can cause constipation * know that iron can make your stools look dark * take for 3 months * have your family doctor recheck your iron levels in about 3 months 6. For right ovarian cyst please see your manager transfusion. Be sure to bring the CD with you to that follow-up appointment. 7. Avoid all forms of tobacco and cannabis. 8. Know that alcohol use will make reflux worse. It can also worsen other gastrointestinal problems. Please avoid alcohol if at all possible. 9. If you stay cannabis-free and you continue with episodes of severe vomiting please talk to your doctor about the possibility of gall bladder disease, a condition called "cyclic vomiting syndrome" (most common in individuals who have a history of migraines or family history of migraines), etc. Follow-up - see your family doctor as scheduled Return to any hospital if - * you have fevers over 100 degrees * you have worsening abdominal pain * you have nausea/vomiting that will not respond to medications * any other concerns Pending Studies at Discharge: Yes Studies:: screening blood test for celiac disease Stand-Alone Forms: [employer], Work/School Release, Smoking Cessation Medications and DC Order Prescriptions: New pantoprazole 40 mg Tablet,Delayed Release (Dr/Ec) 40 mg PO QAM Qty: 30 0RF ondansetron 4 mg tablet,disintegrating 4 mg PO Q6H PRN (Reason: nausea and vomiting) Qty: 10 0RF sucralfate [Carafate] 1 gram tablet 1 g PO BID 7 Days Qty: 14 0RF ferrous sulfate 325 mg (65 mg iron) tablet 325 mg PO DAILY Qty: 30 2RF Rx Instructions: purchase [id number] Continued gabapentin 100 mg Capsule 200 mg PO BID propranolol 20 mg Tablet 20 mg PO DIRECTED PRN (Reason: Anxiety) Rx Instructions: PER PT "PRETTY SURE OF DOSE", UNABLE TO VERIFY. escitalopram oxalate [Lexapro] 20 mg Tablet 30 mg PO DAILY bupropion HCl [Wellbutrin XL] 300 mg Tablet Extended Release 24 Hr 300 mg PO QAM Rx Instructions: PER PT "PRETTY SURE IT'S 300 MG". UNABLE TO VERIFY Discharge Orders: Discharge Order (Routine); Ordered 12/11/22 Ordered By: Clinton Coles/Other Patient Handouts: What Is GERD?, Tips to Control Acid Reflux Admission Data Admit Date/Time: 12/10/22 19:23 Attending Provider: Clinton Hanna Admit Provider: Clinton Phipps Primary Care Provider: PCP,NO Other Providers: Vane Desai ; Madelin Shah ; Chuy Ballard ; Heaven Rizo Coding Diagnoses Intractable vomiting R11.10 Cannabis hyperemesis syndrome concurrent with and due to cannabis dependence F12.288 GERD (gastroesophageal reflux disease) K21.9 Anxiety and depression F41.9; F32.A Vapes nicotine containing substance Z72.0 High anion gap metabolic acidosis E87.29 Hypomagnesemia E83.42 Hypophosphatemia E83.39 Dermoid cyst D36.9
[2022-12-12 16:07] LABS: IgA Serum 134 mg/dL (47-310); Tis Trans IgA <1.0 U/mL
[2022-12-13 15:42] LABS: Codeine Urine NEGATIVE ng/mL (<50); Hydrocodone Urine NEGATIVE ng/mL (<50); Hydromor Urine 418 ng/mL (<50); MDA negative; MDEA negative; MDMA (Ecstasy) Urine, Confirm negative; Marijuana Quant, GCMS Urine 565 ng/mL (<5); Morphine Urine NEGATIVE ng/mL (<50); Norhydrocodone Conf Ur NEGATIVE ng/mL (<50); Noroxycodone Urine 222 ng/mL (<50); Oxycodone Urine NEGATIVE ng/mL (<50); Oxymorph Urine NEGATIVE ng/mL (<50)
== END 2022-12-11 19:59 | disposition home or self-care (01) ==
LOC: ED 15:11 → 3N 15:11 → SUATTDRO 20:18 → 3N 23:17